=== PATIENT | male | born 1955 | race Caucasian/White ===

== ENCOUNTER 2019-03-06 10:57 | Emergency (ER) | payer MEDICAID, MEDICARE ==
[2019-03-06 11:07] VITALS: BP 132/77
--- NOTE | 2019-03-06 12:12 | ED Physician Documentation ---
History of Present Illness - Stated complaint Stated Complaint: FULL BODY RASH - Chief complaint Chief Complaint: General - History obtained from History obtained from: Patient - History of Present Illness Timing: Other (63-year-old gentleman with idiopathic neuropathy, not diabetic. Remote history of scabies presents with 4-week history of rash that spread basically from his ankles up to his crotch and then the trunk wall and forearms. It is very itchy. No right upper quadrant or abdominal pain. No weight loss. No history of liver problems.) Review of Systems Constitutional: denies: Fever, Chills, Myalgias, Fatigue Respiratory: denies: Dyspnea, Cough GI: denies: Abdominal Pain, Nausea, Vomiting, Diarrhea PD PAST MEDICAL HISTORY - Present Medications Home Medications: Ambulatory Orders Medication Instructions Recorded Confirmed Permethrin 5% Cream 1 applic TOP ONCE #2 tube 03/06/19 predniSONE [Deltasone] 20 mg PO [id number] #21 tab 03/06/19 - Allergies Allergies/Adverse Reactions: Allergies Allergy/AdvReac Type Severity Reaction Status Date / Time No Known Drug Allergies Allergy Verified 03/06/19 11:06 PD ED PE NORMAL - Vitals Vital signs reviewed: Yes - General General: Alert and oriented X 3, No acute distress - HEENT HEENT: PERRL (Anicteric) - Derm Derm: Other (He has basically kind of a diffuse erythroderma of the legs and arms with lots of excoriated gerber.) - Neuro Neuro: Alert and oriented X 3, Normal speech Results - Vitals Vitals: Vital Signs - 24 hr 03/06/19 11:04 Temperature 36.4 C L Heart Rate 78 Respiratory 20 Rate Blood Pressure 132/77 H O2 Saturation 98 Oxygen O2 Source Room air PD MEDICAL DECISION MAKING - ED course ED course: 63-year-old gentleman presents with a very itchy nonspecific rash. Scabies is less likely given the distribution but not impossible, there is no downside for treating for same. We will also trial some steroids pending dermatology follow- up which was strongly advised. Departure - Departure Disposition: 01 Home, Self Care Clinical Impression: Dermatitis Condition: Good Record reviewed to determine appropriate education?: Yes Instructions: ED Dermatitis Non Specific Rash Follow-Up: [facility] [Provider Group] Prescriptions: Permethrin 5% Cream 1 applic TOP ONCE #2 tube predniSONE [Deltasone] 20 mg PO [id number] #21 tab Comments: As discussed, the cause of your rash is not quite clear. It could be scabies so we will trial the Kwell cream, or could be some sort of allergic or autoimmune process so the steroids are reasonable to try as well. But I think following up with a map editor is very reasonable, call the number on this form today.
== END 2019-03-06 12:22 | disposition home or self-care (01) ==
LOC: ED 10:57
DX: L30.9 Dermatitis, unspecified (principal)
CPT/HCPCS: 99282; 99283

== ENCOUNTER 2019-04-28 11:14 | Emergency (ER) | payer MEDICARE ==
[2019-04-28 11:32] VITALS: BP 131/85
--- NOTE | 2019-04-28 12:49 | ED Physician Documentation ---
History of Present Illness - Stated complaint Stated Complaint: MALE - Chief complaint Chief Complaint: General - History obtained from History obtained from: Patient (For about a month he has had a mass posterior to the testicle. It does not really bother him unless it is touched. Been a little more pain for the last couple days. No fevers or chills.) Review of Systems Constitutional: denies: Fever, Chills GI: denies: Abdominal Pain, Nausea, Vomiting : denies: Dysuria, Frequency PD PAST MEDICAL HISTORY - Past Medical History Cardiovascular: Hypertension Musculoskeletal: Chronic back pain Other Past Medical History: neuropathy - Present Medications Home Medications: Ambulatory Orders Medication Instructions Recorded Confirmed Permethrin 5% Cream 1 applic TOP ONCE #2 tube 03/06/19 predniSONE [Deltasone] 20 mg PO [id number] #21 tab 03/06/19 Amox/Clav 875/125 [Augmentin] 1 each PO Q12H #20 tablet 04/28/19 - Allergies Allergies/Adverse Reactions: Allergies Allergy/AdvReac Type Severity Reaction Status Date / Time No Known Drug Allergies Allergy Verified 03/06/19 11:06 - Social History Does the pt smoke?: No Smoking Status: Never smoker Does the pt drink ETOH?: No Does the pt have substance abuse?: No - Immunizations Immunizations are current?: Yes PD ED PE NORMAL - Vitals Vital signs reviewed: Yes - General General: Alert and oriented X 3, No acute distress - Male Male : Other (There is a pointed slightly red sebaceous cyst anterior perineum About 2 cm around.) - Back Back: No CVA TTP, No spinal TTP Results - Vitals Vitals: Vital Signs - 24 hr 04/28/19 11:29 Temperature 36.7 C Heart Rate 87 Respiratory 18 Rate Blood Pressure 131/85 H O2 Saturation 96 Oxygen O2 Source Room air PD MEDICAL DECISION MAKING - ED course ED course: Recommended incision and drainage of his sebaceous cyst. He declined and would like to trial antibiotics. He understands he is welcome to return anytime. Departure - Departure Disposition: 01 Home, Self Care Clinical Impression: Sebaceous cyst Condition: Good Record reviewed to determine appropriate education?: Yes Instructions: ED Cyst Sebaceous Infec Abx Tx Prescriptions: Amox/Clav 875/125 [Augmentin] 1 each PO Q12H #20 tablet Comments: Your lesion is consistent with an infected sebaceous cyst. I recommended in cision and drainage, but you would like to try antibiotics at home. Return anytime if pain is significant or if you change your mind. Follow-up with your doctor next week for recheck regardless.
== END 2019-04-28 13:06 | disposition home or self-care (01) ==
LOC: ED 11:14
DX: L72.3 Sebaceous cyst (principal); I10 Essential (primary) hypertension
CPT/HCPCS: 99282; 99283

== ENCOUNTER 2019-12-03 11:17 | Outpatient (CLI) | payer MEDICARE, MEDICAID ==
--- NOTE | 2019-12-03 16:41 | Ultrasound Report ---
Reason: HERNIA OF ANTERIOR ABDOMEN WALL Procedure Date: 12/03/2019 Accession Number: [id number] / [id number] Procedure: US - Abdomen Limited CPT Code: Final Report FULL RESULT: EXAM: ABDOMEN ULTRASOUND LIMITED EXAM DATE: 12/03/2019 11:57 AM. CLINICAL HISTORY: Anterior abdominal wall hernia. COMPARISON: None. TECHNIQUE: Real-time scanning was performed with static images obtained. FINDINGS: Sonographic evaluation of the periumbilical region was performed and demonstrates a fat-containing hernia 3 cm superior to the umbilicus with neck measuring 2.2 x 1.6 cm in hernia sac measuring approximately 4.5 cm in diameter and 2.0 cm AP. IMPRESSION: Supraumbilical fat-containing midline hernia measuring up to 4.5 cm. MATILDEA
== END 2019-12-03 11:18 | disposition home or self-care (01) ==
LOC: DI 11:17
PROVIDERS: ATTEND Nurse Practitioner Family
DX: K43.9 Ventral hernia without obstruction or gangrene (principal)
CPT/HCPCS: 76705

== ENCOUNTER 2020-02-26 12:51 | Outpatient (CLI) | payer MEDICARE, MEDICAID | END 2020-02-26 12:52 | disposition home or self-care (01) | LOC: COV 12:51 | PROVIDERS: ATTEND Surgery | DX: Z01.818 Encounter for other preprocedural examination (principal); K63.9 Disease of intestine, unspecified; Z20.828 Contact with and (suspected) exposure to other viral communicable diseases ==

== ENCOUNTER 2020-11-21 11:22 | Outpatient (CLI) | payer MEDICARE, MEDICAID ==
--- NOTE | 2020-11-21 13:35 | XRAY Report ---
PROCEDURE: Knee 3 View LT INDICATIONS: PX IN LT KNEE TECHNIQUE: 3 views of the left knee(s) were acquired. COMPARISON: Knee x-ray 06/30/2014 FINDINGS: Bones: No fractures or dislocations. No suspicious bony lesions. There is mild to moderate tricomp artmental degenerative change demonstrating progressive compared to prior exam. No erosions. Small pa ratracheal or osteophytes are present. Soft tissues: Mild joint effusion. No suspicious soft tissue calcifications. IMPRESSION: Tricompartmental arthritic change, progressive compared to prior exam. Reviewed by: Yumi Segovia MD on 11/21/2020 1:33 PM PDT Approved by: Yumi Segovia MD on 11/21/2020 1:33 PM PDT Station ID: [id number]
== END 2020-11-21 11:23 | disposition home or self-care (01) ==
LOC: DI.S 11:22
PROVIDERS: ATTEND Family Medicine
DX: M17.12 Unilateral primary osteoarthritis, left knee (principal)

== ENCOUNTER 2021-04-10 11:09 | Emergency (ER) | payer MEDICARE, MEDICAID ==
[2021-04-10 11:26] VITALS: BP 129/79
== END 2021-04-10 11:59 | disposition left against medical advice (07) ==
LOC: ED 11:09
DX: Z53.21 Procedure and treatment not carried out due to patient leaving prior to being seen by health care provider (principal)

== ENCOUNTER 2021-05-31 10:17 | Outpatient (CLI) | payer MEDICARE, MEDICAID ==
--- NOTE | 2021-06-01 16:39 | XRAY Report ---
PROCEDURE: Foot 3 View RT INDICATIONS: RULE OUT OSTEOMYELITIS TECHNIQUE: 3 views of the foot were acquired. COMPARISON: None FINDINGS: Bones: No fractures or dislocations. No suspicious bony lesions. Scattered IP degenerative changes are present. There are no visualized erosions. Soft tissues: No tibiotalar joint effusion. Achilles tendon appears normal. Soft tissue lucency an d edema is noted surrounding the first and second digit. IMPRESSION: Soft tissue prominence suggestive of infection. No distinct osseous lesions to suggest osteomyelitis. However, if concern persists, MRI is recommended. Reviewed by: Yumi Segovia MD on 06/01/2021 4:37 PM PST Approved by: Yumi Segovia MD on 06/01/2021 4:37 PM PST Station ID: [id number]
== END 2021-05-31 10:18 | disposition home or self-care (01) ==
LOC: DI 10:17
PROVIDERS: ATTEND Nurse Practitioner
DX: E11.621 Type 2 diabetes mellitus with foot ulcer (principal); L03.90 Cellulitis, unspecified

== ENCOUNTER 2021-05-31 11:34 | Emergency (ER) | payer MEDICARE, MEDICAID ==
[2021-05-31 12:51] LABS: BASOPHILS # (AUTO) 0.1 10^3/uL (0.0-0.1); BASOPHILS % (AUTO) 0.8 %; EOSINOPHILS # (AUTO) 0.3 10^3/uL (0.0-0.7); HCT - HEMATOCRIT 37.7 % (42.0-52.0); HGB - HEMOGLOBIN 12.4 g/dL (14.0-18.0); LYMPHOCYTES # (AUTO) 1.3 10^3/uL (1.5-3.5); LYMPHOCYTES % (AUTO) 13.3 %; MEAN CORPUSCULAR HEMOGLOBIN 34.7 pg (27.0-31.0); MEAN CORPUSCULAR HGB CONC 32.9 g/dL (32.0-36.0); MEAN CORPUSCULAR VOLUME 105.6 fL (80.0-94.0); MEAN PLATELET VOLUME 8.7 fL (7.4-11.4); MONOCYTES # (AUTO) 0.9 10^3/uL (0.0-1.0); MONOCYTES % (AUTO) 8.6 %; NEUTROPHILS # (AUTO) 7.3 10^3/uL (1.5-6.6); NEUTROPHILS % (AUTO) 73.6 %; PLT - PLATELET COUNT 343 10^3/uL (130-450); RED BLOOD COUNT 3.57 10^6/uL (4.70-6.10); RED CELL DISTRIBUTION WIDTH 14.4 % (12.0-15.0); WHITE BLOOD COUNT 9.9 x10^3/uL (4.8-10.8)
[2021-05-31] MEDS ORDERED: CIPROFLOXACIN 400 MG/200 ML 400 MG/200 ML BAG IV STA (13:06)
[2021-05-31 13:08] LABS: ALBUMIN 3.7 g/dL (3.2-5.5); ALBUMIN/GLOBULIN RATIO 0.9 (1.0-2.2); BILIRUBIN,TOTAL 0.8 mg/dL (0.2-1.0); CALCIUM 9.7 mg/dL (8.5-10.3); CREATININE 0.9 mg/dL (0.6-1.2); CRP - C-REACTIVE PROTEIN 9.1 mg/dL (0-1.0); TOTAL PROTEIN 7.9 g/dL (6.7-8.2)
[2021-05-31 13:50] VITALS: BP 106/71
--- NOTE | 2021-05-31 14:20 | ED Physician Documentation ---
History of Present Illness - Stated complaint Stated Complaint: R FOOT WOUND - Chief complaint Chief Complaint: Ext Problem - History obtained from History obtained from: Patient - History of Present Illness Pain level max: 0 Pain level now: 0 - Additonal information Additional information: Patient is a 65-year-old male with neuropathy in his bilateral feet. He has been being treated for ulcers in the bilateral lower extremities. He is started to develop a plantar ulcer on the right foot about a week ago, over the past several days his toe has become swollen and draining. He was seen at wound care this morning and sent here for evaluation. Patient has not been febrile. Nothing makes it better or worse. Denies any history of diabetes. Patient does smoke. Review of Systems Constitutional: denies: Fever, Chills Ears: denies: Ear pain Nose: denies: Rhinorrhea / runny nose, Congestion Respiratory: denies: Cough GI: denies: Vomiting, Diarrhea Skin: denies: Rash Musculoskeletal: denies: Neck pain, Back pain Neurologic: denies: Headache PD PAST MEDICAL HISTORY - Past Medical History Past Medical History: Yes Cardiovascular: Hypertension Musculoskeletal: Chronic back pain - Present Medications Home Medications: Ambulatory Orders Medication Instructions Recorded Confirmed Albuterol Sulfate [Albuterol 8.5 gm IH BID 03/01/20 05/31/21 Sulfate Hfa] Beclomethasone 40 Mcg [Qvar 40] 1 puffs INH BID 03/01/20 05/31/21 Cyanocobalamin (Vitamin B-12) 500 mcg PO DAILY 03/01/20 05/31/21 [Vitamin B-12] Lisinopril [Zestril] 40 mg PO DAILY 03/01/20 05/31/21 hydroCHLOROthiazide 25 mg PO DAILY 03/01/20 05/31/21 [Hydrochlorothiazide] cephALEXin [Keflex] 500 mg PO BID #14 cap 05/25/21 05/31/21 Doxycycline Hyclate [Vibramycin] 100 mg PO BID 14 Days #28 cap 05/30/21 05/31/21 Ciprofloxacin HCl [Cipro] 500 mg PO BID #28 tablet 05/31/21 DULoxetine [Cymbalta] 60 mg PO DAILY 05/31/21 05/31/21 Meloxicam, Submicronized 10 mg PO DAILY 05/31/21 05/31/21 [Meloxicam] Methadone HCl 10 mg PO TID 05/31/21 05/31/21 - Allergies Allergies/Adverse Reactions: Allergies Allergy/AdvReac Type Severity Reaction Status Date / Time No Known Drug Allergies Allergy Verified 05/31/21 11:42 - Social History Does the pt smoke?: No Smoking Status: Current every day smoker Does the pt drink ETOH?: No Does the pt have substance abuse?: No - Immunizations Immunizations are current?: Yes - POLST Patient has POLST: No PD ED PE NORMAL - Vitals Vital signs reviewed: Yes - General General: Alert and oriented X 3, No acute distress - HEENT HEENT: Moist mucous membranes - Neck Neck: Supple, no meningeal sign - Cardiac Cardiac: RRR - Respiratory Respiratory: No respiratory distress, Clear bilaterally - Abdomen Abdomen: Soft, Non tender, Non distended - Derm Derm: Warm and dry - Extremities Extremities: Other (R foot - great toe has necrotic tissue about 50 % of the circumference of the toe. the wound communicates with a dime sized plantar wound. toe is erythematous and swollen. ) - Neuro Neuro: Alert and oriented X 3 - Psych Psych: Normal mood, Normal affect Results - Vitals Vitals: Vital Signs - 24 hr 05/31/21 05/31/21 05/31/21 11:37 13:49 15:25 Temperature 37 C Heart Rate 89 85 84 Respiratory 18 20 16 Rate Blood Pressure 119/62 106/71 O2 Saturation 98 94 94 Oxygen O2 Source Room air - Labs Labs: Laboratory Tests 05/31/21 05/31/21 05/31/21 12:44 12:44 12:44 WBC 9.9 RBC 3.57 L Hgb 12.4 L Hct 37.7 L MCV 105.6 H MCH 34.7 H MCHC 32.9 RDW 14.4 Plt Count 343 MPV 8.7 Neut # (Auto) 7.3 H Lymph # (Auto) 1.3 L Kimble # (Auto) 0.9 Eos # (Auto) 0.3 Baso # (Auto) 0.1 Absolute Nucleated RBC 0.00 Nucleated RBC % 0.0 ESR 67 H Sodium 136 Potassium 4.0 Chloride 92 L Carbon Dioxide 28 Anion Gap 16.0 H BUN 11 Creatinine 0.9 Estimated GFR (MDRD) 84 L Glucose 123 H Calcium 9.7 Total Bilirubin 0.8 AST 26 ALT 30 Alkaline Phosphatase 86 C-Reactive Protein 9.1 H Total Protein 7.9 Albumin 3.7 Globulin 4.2 Albumin/Globulin Ratio 0.9 L - Rads (name of study) CT angio leg Radiology: Final report received, EMP read contemporaneously, See rad report Procedures - General procedure General procedure: Right great toe debridement - Macerated tissue was sharply removed with a #11 scalpel. Necrotic tissue was also debrided. Quarter-inch plain packing was placed into the wound. Xeroform was wrapped around this. Kerlix was then used to bandage the entire area. Patient tolerated well. PD MEDICAL DECISION MAKING - ED course Complexity details: reviewed results, re-evaluated patient, considered differential, d/w patient ED course: Patient is a 65-year-old male with necrotic areas to the right great toe. These were debrided in the emergency department. Tolerated well. Packed with plain gauze and Xeroform was used to wrap the toe. Kerlix was then used to wrap the toe and foot. The patient was seen and evaluated by Dr. Villeda, orthopedics who recommends obtaining a CT angiogram of the lower extremity today and following up with wound care for a recheck on Saturday. We will place the patient on ciprofloxacin. Antibiotic is based on most recent cultures. Patient will follow up with wound care at 1030 on Saturday morning. Patient will return if he worsens. Patient was counseled that he may need toe amputation, ray amputation, or potential BKA. Patient counseled regarding signs and symptoms for which I believe and urgent re-evaluation would be necessary. Patient with good u nderstanding of and agreement to plan and is comfortable going home at this time This document was made in part using voice recognition software. While efforts are made to proofread this document, sound alike and grammatical errors may occur. Patient also states that he is going to quit smoking today. CT Angio leg: IMPRESSION: 1. CT aortography and bilateral lower extremity runoff arteriography does not demonstrate significant stenotic disease. There is only mild atherosclerotic narrowing. There is straight line flow to the ankles with three-vessel runoff bilaterally. 2. Diffuse hepatic steatosis. 3. Imaging was only obtained from the level of the renal arteries. A significant portion of the abdomen was not studied. Departure - Departure Disposition: 01 Home, Self Care Clinical Impression: Wound of foot Condition: Good Instructions: ED Wound Care Follow-Up: Rick Joseph MD [Primary Care Provider] - Within [address] Villeda MD [Provider Admit Priv/Credential] - Tanisha Morales ARNP [Provider Admit Priv/Credential] - Prescriptions: Ciprofloxacin HCl [Cipro] 500 mg PO BID #28 tablet Comments: We will start you on ciprofloxacin by mouth twice daily. You have an appointment with wound care at 1030 on Saturday for a wound check. You also need to follow-up with orthopedics for further care. Return sooner if you worsen including increasing redness, drainage, fevers or other worsening symptoms. Take all antibiotics until gone, even if you are feeling better [facility] Discharge Date/Time: 05/31/21 16:50
[2021-05-31] MEDS ORDERED: IOVERSOL 320 100 ML VIAL IVP ONE ×2 (14:24→18:26)
--- NOTE | 2021-05-31 16:19 | CT Report ---
PROCEDURE: ANGIO ABD RUNOFF W/WO - B/L INDICATIONS: RLE nonhealing wound CONTRAST: IV CONTRAST: Optiray 320 ml: 125 PO CONTRAST: *NO PO CONTRAST TECHNIQUE: After the administration of intravenous contrast, 2 and 5 mm sections acquired from T12 to the feet, with optional delayed image acquisition from the knees to the feet. 3-dimensional maximum intensity projection (MIP) coronal and sagittal reformats, and/or 3-dimensional volume rendering reformatting w as then performed. For radiation dose reduction, the following was used: automated exposure control , adjustment of mA and/or kV according to patient size. COMPARISON: None. FINDINGS: Image quality: Excellent. Extravascular tissues: Imaging occurred from the level of the renal arteries inferiorly. Much of the abdomen is not included on the images. Diffuse hepatic steatosis. Visualized portions of the liver d emonstrate no masses. Only the inferior aspect of the spleen is seen. The visualized portions of the pancreas are unremarkable. Visualized portions of the kidneys are unremarkable. Gallbladder is unrema rkable Biliary system is non dilated. Visualized portions of the adrenals are unremarkable. Non opac ified bowel loops demonstrate normal wall thickness and enhancement. No free fluid or air. No retro peritoneal or mesenteric adenopathy. No ventral hernias. Bladder wall thickness is normal. No ingu inal hernias or adenopathy. No suspicious bony lesions. No vertebral body compression fractures. Abdominal aorta: Aortic plaque is present. No stenosis or aneurysm or dissection. Right lower extremity: Mild common iliac and external iliac artery plaque. Mild common femoral disea se. Mild diffuse SFA disease, with straight line flow. Mild popliteal disease. Three continuous runo ff vessels. Left lower extremity: Mild common iliac and external iliac artery plaque. Mild common femoral diseas e. Mild diffuse SFA disease, with straight line flow. Mild popliteal disease. Three continuous runof f vessels. IMPRESSION: 1. CT aortography and bilateral lower extremity runoff arteriography does not demonstrate significant stenotic disease. There is only mild atherosclerotic narrowing. There is straight line flow to the a nkles with three-vessel runoff bilaterally. 2. Diffuse hepatic steatosis. 3. Imaging was only obtained from the level of the renal arteries. A significant portion of the abdom en was not studied. Reviewed by: Edwin Mills MD on 05/31/2021 4:18 PM PST Approved by: Edwin Mills MD on 05/31/2021 4:18 PM [facility] Station ID: [id number]
== END 2021-05-31 16:50 | disposition home or self-care (01) ==
LOC: ED 11:34
DX: I96 Gangrene, not elsewhere classified (principal); E11.52 Type 2 diabetes mellitus with diabetic peripheral angiopathy with gangrene; E11.621 Type 2 diabetes mellitus with foot ulcer; L03.90 Cellulitis, unspecified; F17.200 Nicotine dependence, unspecified, uncomplicated
CPT/HCPCS: 36415; 73630; 75635; 80053; 85025; 85651; 86140; 87040; 96365; 97597; 99284; Q9967

== ENCOUNTER 2021-06-27 11:41 | Outpatient (CLI) | payer MEDICARE, MEDICAID ==
--- NOTE | 2021-06-27 17:28 | XRAY Report ---
PROCEDURE: Foot 3 View RT INDICATIONS: R FOOT ULCER TECHNIQUE: 3 views of the foot were acquired. COMPARISON: 05/31/2021 FINDINGS: Bones: No fractures or dislocations. No suspicious bony lesions. There are degenerative changes of the interphalangeal joints. Soft tissues: No tibiotalar joint effusion. Achilles tendon appears normal. IMPRESSION: 1. Degenerative changes of the interphalangeal joints. 2. No evidence of osteomyelitis. Reviewed by: Silvio Bhakta on 06/27/2021 5:27 PM [facility] Approved by: Silvio Bhakta on 06/27/2021 5:27 PM [facility] Station ID: [id number]
== END 2021-06-27 23:59 | disposition home or self-care (01) ==
LOC: DI.N 11:41
PROVIDERS: ATTEND Orthopaedic Surgery
DX: L97.529 Non-pressure chronic ulcer of other part of left foot with unspecified severity (principal); M19.071 Primary osteoarthritis, right ankle and foot

== ENCOUNTER 2022-04-06 08:29 | Outpatient (CLI) | payer MEDICARE, MEDICAID ==
--- NOTE | 2022-04-06 14:43 | XRAY Report ---
PROCEDURE: Foot 3 View RT INDICATIONS: OSTEOMYELITIS TECHNIQUE: 3 views of the foot were acquired. COMPARISON: None FINDINGS: Bones: No fractures or dislocations. There is significant thickening with possible disruption of the cortex of the tuft of the distal first phalanx. Soft tissues: No tibiotalar joint effusion. Achill es tendon appears normal. IMPRESSION: Possible erosion versus diffuse osteopenia at the first distal phalanx. If concern for osteomyelitis persists, MRI is recommended. Reviewed by: Yumi Segovia MD on 04/06/2022 2:41 PM PDT Approved by: Yumi Segovia MD on 04/06/2022 2:41 PM PDT Station ID: [id number]
== END 2022-04-06 08:30 | disposition home or self-care (01) ==
LOC: DI 08:29
PROVIDERS: ATTEND Nurse Practitioner
DX: L97.519 Non-pressure chronic ulcer of other part of right foot with unspecified severity (principal); F17.210 Nicotine dependence, cigarettes, uncomplicated; G62.9 Polyneuropathy, unspecified; I87.2 Venous insufficiency (chronic) (peripheral)

== ENCOUNTER 2022-06-28 13:45 | Outpatient (CLI) | payer MEDICARE, MEDICAID ==
[~2022-06-28 13:45] MED LIST: GADOBUTROL 10 MMOL/10 ML VIAL ONE
[2022-06-28] MEDS: GADOBUTROL 10 MMOL/10 ML VIAL IVP ONE (15:24)
--- NOTE | 2022-06-29 10:57 | MRI Report ---
PROCEDURE: FOOT W/WO - RT INDICATIONS: CHRONIC ULCER R FOOT CONTRAST: 10.0 TECHNIQUE: Noncontrast sagittal T1 spin echo and T2 fast spin echo with fat saturation, long-axis T1 spin echo a nd T2 fast spin echo with fat saturation; short-axis T1 spin echo, proton density fast spin echo, and T2 fast spin echo with fat saturation through the forefoot. Post-contrast short axis, long axis, an d sagittal T1 spin echo with fat saturation through the forefoot. COMPARISON: Right foot radiograph dated 04/06/2022, 06/27/2021, 05/31/2021 FINDINGS: Image quality: Diagnostic. Patient motion is noted.. Bones and joints: There is marrow edema involving first proximal phalangeal head and show contrast en hancement in this area. No definite bony erosion is seen. No other area of abnormal marrow signal. Os teoarthritic changes are noted throughout midfoot and forefoot joints. Bipartite medial sesamoid of f irst metatarsal head is seen. No acute fracture or dislocation. No evidence of metatarsal stress frac tures. Soft tissues: Ulceration involving plantar aspect of great toe is noted at the level of first proxima l phalangeal shaft and first metatarsal head. Adjacent soft tissue swelling and edema is seen and marty w heterogeneous contrast enhancement. No discrete drainable peripherally enhancing fluid collection i s noted. The visualized plantar foot muscles demonstrate mild edema suggestive of myositis. Visualiz ed flexor and extensor tendons appear intact, without tenosynovitis. The distal insertions of the pe roneus brevis and longus tendons appear intact. The principal Lisfranc ligament appears intact. No soft tissue ganglion cysts or bursal fluid collections. IMPRESSION: 1. Ulceration involving soft tissue over plantar aspect of right toe at the level of first MTP joint and first proximal phalangeal shaft. Significant cellulitis in adjacent soft tissue is seen. No discr ete drainable abscess collection. 2. Suggestion of osteomyelitis involving lateral aspect of first proximal phalangeal head with marrow edema. No definite bony erosion. Evaluation is slightly limited due to patient motion. No other area of marrow signal abnormality is seen. 3. Osteoarthritic changes throughout midfoot and forefoot joints. No fracture or dislocation. 4. Mild myositis involving medial plantar foot muscles. No discrete drainable intramuscular abscess c ollection. No gross flexor and extensor tendon pathology. Reviewed by: Grant Romo MD on 06/29/2022 10:56 AM PST Approved by: Grant Romo MD on 06/29/2022 10:56 AM PST Station ID: [id number]
== END 2022-06-28 13:46 | disposition home or self-care (01) ==
LOC: MAC.INF 13:45
PROVIDERS: ATTEND Nurse Practitioner
DX: L97.512 Non-pressure chronic ulcer of other part of right foot with fat layer exposed (principal); I87.2 Venous insufficiency (chronic) (peripheral); G62.9 Polyneuropathy, unspecified; L03.031 Cellulitis of right toe; M19.071 Primary osteoarthritis, right ankle and foot; M60.9 Myositis, unspecified; R93.6 Abnormal findings on diagnostic imaging of limbs
CPT/HCPCS: 73720; A9585

== ENCOUNTER 2022-07-22 15:20 | Outpatient (CLI) | payer MEDICARE, MEDICAID | END 2022-07-22 15:21 | disposition EMS.NT | LOC: EMS 15:20 | DX: R60.0 Localized edema (principal); R42 Dizziness and giddiness; R61 Generalized hyperhidrosis ==

== ENCOUNTER 2022-11-16 09:57 | Outpatient (CLI) | payer MEDICARE, MEDICAID ==
--- NOTE | 2022-11-16 14:51 | XRAY Report ---
PROCEDURE: Foot 3 View RT INDICATIONS: VENOUS INSUFFICIENCY,POLYNEUROPATHY TECHNIQUE: 3 views of the foot were acquired. COMPARISON: MR foot 06/28/2022, x-ray foot 04/06/2022 FINDINGS: Bones: No fractures or dislocations. No suspicious bony lesions. Moderate diffuse IP degenerative narrowing, most severe distally, as well as the first MTP joint. Periarticular osteophytes are prese nt.. Osteopenia is present. Soft tissues: No suspicious soft tissue calcifications or masses. IMPRESSION: IP arthritic change. Reviewed by: Yumi Segovia MD on 11/16/2022 2:50 PM PDT Approved by: Yumi Segovia MD on 11/16/2022 2:50 PM PDT Station ID: [id number]
== END 2022-11-16 09:58 | disposition home or self-care (01) ==
LOC: DI 09:57
PROVIDERS: ATTEND Nurse Practitioner
DX: I87.2 Venous insufficiency (chronic) (peripheral) (principal); G62.9 Polyneuropathy, unspecified; M19.071 Primary osteoarthritis, right ankle and foot

== ENCOUNTER 2022-12-24 08:00 | Outpatient (CLI) | payer MEDICARE, MEDICAID ==
--- NOTE | 2022-12-24 16:49 | XRAY Report ---
PROCEDURE: Chest 2 View X-Ray INDICATIONS: SHORTNESS OF BREATH TECHNIQUE: 2 views of the chest were acquired. COMPARISON: Chest x-ray, 10/21/2015. FINDINGS: Surgical changes and devices: None. Lungs and pleura: Mild interstitial prominence. No focal consolidation. No pleural effusions or pneu mothorax. Mediastinum: Mediastinal contours appear normal. Heart size is normal. Bones and chest wall: No suspicious bony lesions. Overlying soft tissues appear unremarkable. IMPRESSION: No acute cardiopulmonary process. Reviewed by: Dada Silva MD on 12/24/2022 4:47 PM PDT Approved by: Dada Silva MD on 12/24/2022 4:47 PM PDT Station ID: [id number]
== END 2022-12-24 23:59 | disposition home or self-care (01) ==
LOC: DI.S 08:00
PROVIDERS: ATTEND Registered Nurse
DX: R06.02 Shortness of breath (principal)

== ENCOUNTER 2023-03-15 06:12 | Outpatient (CLI) | payer MEDICARE, MEDICAID | END 2023-03-15 06:13 | disposition critical access hospital (66) | LOC: EMS 06:12 | DX: R06.02 Shortness of breath (principal); J44.9 Chronic obstructive pulmonary disease, unspecified | CPT/HCPCS: A0425; A0427 ==

== ENCOUNTER 2023-03-15 06:47 | Inpatient (IN) | payer MEDICARE, MEDICAID ==
[2023-03-15] MEDS ORDERED: IPRATROPIUM/ALBUTEROL 3 ML NEB INH STA (06:51)
--- NOTE | 2023-03-15 07:03 | ED Physician Documentation ---
PD HPI DYSPNEA - Stated complaint Stated Complaint: DIFF BREATHING - History obtained from History obtained from: Patient, EMS - History of Present Illness Timing - onset: How many weeks ago (1-2 gradually with marked worse 1-2 days.) Timing - onset during: Light activity Timing - duration: Days, Weeks Timing - details: Gradual onset, Still present Inciting event(s): No: Out of meds, URI Improved by: Inhaler/neb, Other (He does have history of COPD but has albuterol inhaler as needed only. No other medicines. No home oxygen. Mild baseline wheeze. He still smokes.) Review of Systems Constitutional: reports: Myalgias. denies: Fever, Chills Nose: reports: Congestion. denies: Rhinorrhea / runny nose Throat: reports: Sore throat Cardiac: reports: Palpitations. denies: Chest pain / pressure, Pedal edema Respiratory: reports: Dyspnea, Cough, Wheezing : denies: Dysuria, Frequency Skin: denies: Rash, Lesions Musculoskeletal: denies: Neck pain, Back pain PD PAST MEDICAL HISTORY - Past Medical History Cardiovascular: Hypertension Respiratory: COPD Neuro: None Endocrine/Autoimmune: None Musculoskeletal: Chronic back pain - Present Medications Home Medications: Ambulatory Orders Medication Instructions Recorded Confirmed Albuterol Sulfate [Albuterol 2 - 4 puffs IH RTQ4H PRN 03/01/20 03/15/23 Sulfate Hfa] hydroCHLOROthiazide 25 mg PO DAILY 03/01/20 03/15/23 [Hydrochlorothiazide] Methadone HCl 10 mg PO TID 05/31/21 03/15/23 Furosemide [Lasix] 20 mg PO DAILY 03/15/23 03/15/23 lisinopriL [Lisinopril] 40 mg PO DAILY 03/15/23 03/15/23 - Allergies Allergies/Adverse Reactions: Allergies Allergy/AdvReac Type Severity Reaction Status Date / Time No Known Drug Allergies Allergy Verified 03/15/23 07:04 - Social History Does the pt smoke?: No Smoking Status: Current every day smoker Does the pt drink ETOH?: No Does the pt have substance abuse?: No - Immunizations Immunizations are current?: Yes - POLST Patient has POLST: No PD ED PE NORMAL - Vitals Vital signs reviewed: Yes - General General: Alert and oriented X 3, Well developed/nourished, Other (initial appearance of tachycpnea, work of breathing, and partials entence dyspnea. This improved with nebulizers x 3 and BiPAP. ) - HEENT HEENT: Pharynx benign - Neck Neck: Supple, no meningeal sign, No adenopathy - Cardiac Cardiac: RRR, No murmur - Respiratory Respiratory: Other (able to talk partial sentences. ). No: Clear bilaterally (exp wheezing noted diffusely with prolonged expiratory phase. ) - Abdomen Abdomen: Soft, Non tender - Back Back: No CVA TTP - Derm Derm: Normal color, Warm and dry - Extremities Extremities: Normal ROM s pain, No edema, No calf tenderness / cord - Neuro Neuro: Alert and oriented X 3, No motor deficit, Normal speech Results - Vitals Vitals: Vital Signs - 24 hr 03/15/23 03/15/23 03/15/23 06:56 07:00 07:05 Temperature 36.5 C Heart Rate 22 L 109 H 108 H Respiratory 26 H 22 Rate Blood Pressure 145/95 H 162/84 H O2 Saturation 100 95 03/15/23 03/15/23 03/15/23 07:22 07:54 08:08 Temperature Heart Rate 102 H 96 102 H Respiratory 17 17 20 Rate Blood Pressure 162/84 H O2 Saturation 100 03/15/23 03/15/23 03/15/23 09:04 09:21 09:31 Temperature Heart Rate 87 95 105 H Respiratory 13 16 Rate Blood Pressure 109/70 O2 Saturation 98 03/15/23 10:18 Temperature Heart Rate 92 Respiratory 14 Rate Blood Pressure 109/70 O2 Saturation 98 Oxygen O2 Source BIPAP - Labs Labs: Laboratory Tests 03/15/23 03/15/23 03/15/23 07:00 07:00 07:00 WBC 12.9 H RBC 3.71 L Hgb 12.4 L Hct 39.0 L MCV 105.1 H MCH 33.4 H MCHC 31.8 L RDW 13.5 Plt Count 224 MPV 9.6 Neut # (Auto) 8.9 H Lymph # (Auto) 1.4 L [place] # (Auto) 1.1 H Eos # (Auto) 1.4 H Baso # (Auto) 0.1 Absolute Nucleated RBC 0.00 Nucleated RBC % 0.0 Manual Slide Review Indicated RBC Morph Micro Appear 1+ ANISOCYTOSIS D-Dimer Bld Gas Analysis Time Sample Site ABG pH ABG pCO2 ABG pO2 ABG HCO3 ABG Total CO2 ABG O2 Saturation ABG Base Excess Simba Test VBG pH 7.283 L VBG pCO2 56.9 H VBG pO2 122.0 H VBG HCO3 26.3 VBG Total CO2 28.1 VBG O2 Saturation 98.1 H VBG Base Excess -1.4 Respiration Rate O2 Delivery Device FiO2 EPAP IPAP Sodium 133 L Potassium 4.6 H Chloride 98 L Carbon Dioxide 31 Anion Gap 4.0 L BUN 19 Creatinine 1.1 Estimated GFR (MDRD) 66 L Glucose 157 H Calcium 9.2 Magnesium Total Bilirubin 0.4 AST 17 ALT 16 Alkaline Phosphatase 79 B-Natriuretic Peptide 33 Total Protein 7.5 Albumin 4.4 Globulin 3.1 Albumin/Globulin Ratio 1.4 Lipase < 10 L Nasal Adenovirus (PCR) Nasal B. parapertussis DNA (PCR) Nasal Coronavir 229E PCR Nasal Coronavir HKU1 PCR Nasal Coronavir NL63 PCR Nasal Coronavir OC43 PCR Nasal Enterovir/Rhinovir PCR Nasal Influenza B PCR Nasal Influenza A PCR Nasal Parainfluen 1 PCR Nasal Parainfluen 2 PCR Nasal Parainfluen 3 PCR Nasal Parainfluen 4 PCR Nasal RSV (PCR) Nasal B.pertussis DNA PCR Nasal C.pneumoniae (PCR) Jacek Human Metapneumo PCR Nasal M.pneumoniae (PCR) Nasal SARS-CoV-2 (PCR) 03/15/23 03/15/23 03/15/23 07:00 07:10 07:48 WBC RBC Hgb Hct MCV MCH MCHC RDW Plt Count MPV Neut # (Auto) Lymph # (Auto) [place] # (Auto) Eos # (Auto) Baso # (Auto) Absolute Nucleated RBC Nucleated RBC % Manual Slide Review RBC Morph Micro Appear D-Dimer Bld Gas Analysis Time 0744 Sample Site RIGHT RADIAL ABG pH 7.21 L ABG pCO2 73 H* ABG pO2 112 H ABG HCO3 28.5 H ABG Total CO2 30.7 H ABG O2 Saturation 97 ABG Base Excess -1.1 Simab Test POSITIVE VBG pH VBG pCO2 VBG pO2 VBG HCO3 VBG Total CO2 VBG O2 Saturation VBG Base Excess Respiration Rate 16 O2 Delivery Device BiPAP FiO2 40.00 EPAP 5 IPAP 10 Sodium Potassium Chloride Carbon Dioxide Anion Gap BUN Creatinine Estimated GFR (MDRD) Glucose Calcium Magnesium 2.0 Total Bilirubin AST ALT Alkaline Phosphatase B-Natriuretic Peptide Total Protein Albumin Globulin Albumin/Globulin Ratio Lipase Nasal Adenovirus (PCR) NOT DETECTED Nasal B. parapertussis DNA (PCR) NOT DETECTED Nasal Coronavir 229E PCR NOT DETECTED Nasal Coronavir HKU1 PCR NOT DETECTED Nasal Coronavir NL63 PCR NOT DETECTED Nasal Coronavir OC43 PCR NOT DETECTED Nasal Enterovir/Rhinovir PCR NOT DETECTED Nasal Influenza B PCR NOT DETECTED Nasal Influenza A PCR NOT DETECTED Nasal Parainfluen 1 PCR NOT DETECTED Nasal Parainfluen 2 PCR NOT DETECTED Nasal Parainfluen 3 PCR NOT DETECTED Nasal Parainfluen 4 PCR NOT DETECTED Nasal RSV (PCR) NOT DETECTED Nasal B.pertussis DNA PCR NOT DETECTED Nasal C.pneumoniae (PCR) NOT DETECTED Jacek Human Metapneumo PCR NOT DETECTED Nasal M.pneumoniae (PCR) NOT DETECTED Nasal SARS-CoV-2 (PCR) NOT DETECTED 03/15/23 03/15/23 09:10 09:42 WBC RBC Hgb Hct MCV MCH MCHC RDW Plt Count MPV Neut # (Auto) Lymph # (Auto) [place] # (Auto) Eos # (Auto) Baso # (Auto) Absolute Nucleated RBC Nucleated RBC % Manual Slide Review RBC Morph Micro Appear D-Dimer 257.8 H Bld Gas Analysis Time 0917 Sample Site RIGHT RADIAL ABG pH 7.22 L ABG pCO2 73 H* ABG pO2 87 ABG HCO3 29.1 H ABG Total CO2 31.4 H ABG O2 Saturation 95 ABG Base Excess -0.4 Simba Test POSITIVE VBG pH VBG pCO2 VBG pO2 VBG HCO3 VBG Total CO2 VBG O2 Saturation VBG Base Excess Respiration Rate 16 O2 Delivery Device BiPAP FiO2 35.00 EPAP 5 IPAP 15 Sodium Potassium Chloride Carbon Dioxide Anion Gap BUN Creatinine Estimated GFR (MDRD) Glucose Calcium Magnesium Total Bilirubin AST ALT Alkaline Phosphatase B-Natriuretic Peptide Total Protein Albumin Globulin Albumin/Globulin Ratio Lipase Nasal Adenovirus (PCR) Nasal B. parapertussis DNA (PCR) Nasal Coronavir 229E PCR Nasal Coronavir HKU1 PCR Nasal Coronavir NL63 PCR Nasal Coronavir OC43 PCR Nasal Enterovir/Rhinovir PCR Nasal Influenza B PCR Nasal Influenza A PCR Nasal Parainfluen 1 PCR Nasal Parainfluen 2 PCR Nasal Parainfluen 3 PCR Nasal Parainfluen 4 PCR Nasal RSV (PCR) Nasal B.pertussis DNA PCR Nasal C.pneumoniae (PCR) Jacek Human Metapneumo PCR Nasal M.pneumoniae (PCR) Nasal SARS-CoV-2 (PCR) - Rads (name of study) chest xray Relevant Findings:: Prelim report reviewed, EMP independent interpretation of test (diffuse mild general instertitial changes c/w edema vs. viral pneumonitis appearance. ) PD Medical Decision Making - ED course Complexity details: reviewed results (normal BNP so less likely CHF. Presume viral pneumonia difuse pattern. D-dimer negative (increase 2 points over normal lab, but negative by age adjusted). ), re-evaluated patient, considered differential, d/w patient ED course: The patient arrived via EMS having had nebulizer and Solu-Medrol on route. His breathing was still labored and had diffuse wheezing so was placed on BiPAP on arrival here in the ER. This helped quite a bit over the next 15 or 20 minutes and he was maintained on it. He was given repeat nebulizer treatments in line. Chest x-ray showed some diffuse interstitial changes consistent with possible edema versus viral pattern. No focal infiltrates. Clinically he was looking much more comfortable with decreased work of breathing and work using his iPhone and speaking in complete sentences. He rested briefly and seemed to be almost sleeping but roused promptly. He said he was tired. His initial blood gas showed a PCO2 of 53 with adequate oxygenation. Clinically he was doing much better but a repeat ABG now showed PCO2 is in the 70s. Interesting that this was not how it appeared clinically for him. We maintain him on BiPAP and increased his top pressure. His oxygen intake was kept the same as this is adequate. We could even decrease his oxygen level a bit in case he has a retainer. At this point he does not look to be going into respiratory failure. He is breathing much easier and awake and alert. However he still has acidosis with hypercarbia and a COPD exacerbation. I talked with the hospitalist who agreed to place the patient in the ICU for further treatment. Other consideration he does have a chronic leg wound on the right foot. No calf tenderness nor edema. His D-dimer is essentially normal at 257 with normal up to 255. He does not have any infiltrates or pneumothorax on chest x-ray. He is on the BiPAP at this point so CT would be difficult and I do not see an urgent indication for CT scan. - Critical Care Time(min): 50 Time Includes: Direct patient care, Reassess patient, Document care Data interpretation: Labs, ABG, CXR Departure - Departure Disposition: 66 [facility] DC/Xfer Clinical Impression: Dyspnea, Hypercarbia, Acute exacerbation of COPD with asthma Condition: Stable Discharge Date/Time: 03/15/23 12:09
[2023-03-15 07:10] LABS: BASOPHILS # (AUTO) 0.1 10^3/uL (0.0-0.1); BASOPHILS % (AUTO) 0.5 %; EOSINOPHILS # (AUTO) 1.4 10^3/uL (0.0-0.7); EOSINOPHILS % (AUTO) 10.6 %; HGB - HEMOGLOBIN 12.4 g/dL (14.0-18.0); LYMPHOCYTES # (AUTO) 1.4 10^3/uL (1.5-3.5); LYMPHOCYTES % (AUTO) 10.9 %; MEAN CORPUSCULAR HEMOGLOBIN 33.4 pg (27.0-31.0); MEAN CORPUSCULAR HGB CONC 31.8 g/dL (32.0-36.0); MEAN CORPUSCULAR VOLUME 105.1 fL (80.0-94.0); MEAN PLATELET VOLUME 9.6 fL (7.4-11.4); MONOCYTES # (AUTO) 1.1 10^3/uL (0.0-1.0); MONOCYTES % (AUTO) 8.2 %; NEUTROPHILS # (AUTO) 8.9 10^3/uL (1.5-6.6); NEUTROPHILS % (AUTO) 69.4 %; PLT - PLATELET COUNT 224 10^3/uL (130-450); RED BLOOD COUNT 3.71 10^6/uL (4.70-6.10); RED CELL DISTRIBUTION WIDTH 13.5 % (12.0-15.0); WHITE BLOOD COUNT 12.9 x10^3/uL (4.8-10.8)
[2023-03-15 07:12] LABS: VBG BASE EXCESS -1.4 mmol/L (-2 - +2); VBG HCO3 26.3 mmol/L (23-28); VBG OXYGEN SATURATION 98.1 % (60-80); VBG PCO2 56.9 mmHg (41-51); VBG PH 7.283 (7.31-7.41); VBG TOTAL CO2 28.1 mmol/L (24-29)
[2023-03-15 07:16] LABS: RBC MORPHOLOGY (MULTIPLE) 1+ ANISOCYTOSIS (NORMAL); SLIDE REVIEW? Indicated
[2023-03-15] MEDS ORDERED: ALBUTEROL NEB 2.5 MG/3 ML INH STA ×2 (07:21→09:17)
[2023-03-15 07:26] LABS: ALBUMIN 4.4 g/dL (3.2-5.5); ALBUMIN/GLOBULIN RATIO 1.4 (1.0-2.2); ALKALINE PHOSPHATASE 79 IU/L (42-121); ALT ALANINE AMINOTRANSFERASE 16 IU/L (10-60); AST ASPARTATE AMINOTRANSFERASE 17 IU/L (10-42); BILIRUBIN,TOTAL 0.4 mg/dL (0.2-1.0); BUN - BLOOD UREA NITROGEN 19 mg/dL (6-20); CALCIUM 9.2 mg/dL (8.5-10.3); CARBON DIOXIDE - CO2 31 mmol/L (21-32); CHLORIDE 98 mmol/L (101-111); CREATININE 1.1 mg/dL (0.6-1.3); GFR - MDRD 66 (>89); GLUCOSE 157 mg/dL (74-104); POTASSIUM 4.6 mmol/L (3.5-4.5); SODIUM 133 mmol/L (135-145); TOTAL PROTEIN 7.5 g/dL (6.4-8.9)
[2023-03-15 07:33] LABS: LIPASE < 10 U/L (11-82)
--- OUTSIDE RECORDS SUMMARY | 2023-03-15 07:55 | EXTERNAL MEDICAL SUMMARY RPT | Continuity of Care Document ---
Author Name Unknown Address [address] [place] [address] Phone Organization [facility] Address [address] [place] [address] Phone Care Team Providers Care Manager Financial Systems Name Role Phone Unavailable Unavailable Unavailable Kobe Jangp, Rafiq Unavailable Unavailabl e Bartolo Cabrera, Waleska Lopez Unavailable Unavailabl e Medications date description facility 2022-12-24 00:00 [facility]isolone [facility] 2022-12-24 00:00 methylprednisolone [facility] 2022-12-25 00[facility]00 furosemide [facility] 2022-12-26 00:00 furosemide [facility] 2022-12-28 00:00 furosemide [facility] 2022-12-24 00:00 methylprednisolone [facility] 2022-12-24 00:00 methylprednisolone [facility] 2022-12-24 00:00 methylprednisolone [facility] 2022-12-24 00:00 methylprednisolone [facility] 2022-12-24 00:00 DEXAMETHASONE SODIUM PHOSPHATE [facility] 2022-12-24 00:00 DEXAMETHASONE SODIUM PHOSPHATE [facility] 2022-12-25 00:00 furosemide [facility] 2022-12-26 00:00 furosemide [facility] 2022-12-28 00:00 furosemide [facility] 2022-12-25 00:00 furosemide [facility] 2022-12-26 00:00 furosemide [facility] 2022-12-28 00:00 furosemide [facility] 2022-12-24 00:00 albuterol sulfate [facility] 2022-12-24 00:00 albuterol sulfate [facility] 2022-12-24 00:00 albuterol sulfate [facility] 2022-12-24 00:00 albuterol sulfate [facility] 2022-12-24 00:00 albuterol sulfate [facility] 2022-12-24 00:00 albuterol sulfate [facility] 2022-12-24 00:00 albuterol sulfate [facility] 2022-12-24 00:00 albuterol sulfate [facility] 2022-12-24 00:00 methylprednisolone [facility] 2022-12-24 00:00 methylprednisolone [facility] 2022-12-25 00:00 furosemide [facility] 2022-12-26 00:00 furosemide [facility] 2022-12-28 00:00 furosemide [facility] Problems date description facility 2022-12-24 00:00 Dyspnea [facility] 2022-12-24 00:00 Dyspnea [facility] 2022-12-24 00:00 Shortness of breath [facility] 2022-12-24 00:00 Shortness of breath [facility] 2022-12-25 00:00 Other emphysema [facility] 2022-12-25 00:00 Pulmonary emphysema [facility] 2022-12-25 00:00 Emphysema, unspecified [facility] 2022-12-26 00:00 Other emphysema [facility] 2022-12-26 00:00 Pulmonary emphysema [facility] 2022-12-26 00:00 Emphysema, unspecified [facility] 2022-12-28 00:00 Other emphysema [facility] 2022-12-28 00:00 Pulmonary emphysema [facility] 2022-12-28 00:00 Emphysema, unspecified [facility] Procedures date description facility 2022-12-24 00:00 Visit Code Hold [facility] 2022-12-24 00:00 Visit Code Hold [facility] 2022-12-24 00:00 Dexamethasone Sodium Phosphate Inj 10mg/1mL [facility] 2022-12-24 00:00 Dexamethasone Sodium Phosphate Inj 10mg/1mL [facility] Results/Labs test date facility value unit notes Social History date description facility 2022-12-24 00:00 Current every day smoker [facility] 2022-12-24 00:00 Current every day smoker [facility] Vital Signs date measurement value units 2022-12-24 00:00 BMI 40.08 kg/m2 2022-12-24 00:00 BP_diastolic 71 mmHg 2022-12-24 00:00 BP_systolic 129 mmHg 2022-12-24 00:00 heart_rate 87 /min 2022-12-24 00:00 height_metric 175.26 cm 2022-12-24 00:00 height_standard 69 in 2022-12-24 00:00 respiration_rate 22 /min 2022-12-24 00:00 temperature_metric 37.17 C 2022-12-24 00:00 temperature_standard 98.9 F 2022-12-24 00:00 weight_metric 122.65 kg 2022-12-24 00:00 weight_standard 270.4 lb
[2023-03-15 07:56] LABS: ABG BASE EXCESS -1.1 mmol/L (-2.0-3.0); ABG HCO3 28.5 mmol/L (22.0-26.0); ABG OXYGEN SATURATION 97 % (94-98); ABG PH 7.21 (7.35-7.45); ABG PO2 112 mmHg (80-100); ABG TCO2 30.7 MMOL/L (21.0-29.0); ALLEN TEST POSITIVE
[2023-03-15 07:57] LABS: ABG RESPIRATORY RATE 16 b/min
[2023-03-15 07:59] LABS: ABG PCO2 73 mmHg (34-45)
[2023-03-15 08:10] LABS: B. PARAPERTUSSIS- RESP PCR PAN NOT DETECTED; B. PERTUSSIS- RESP PCR PANEL NOT DETECTED; C. PNEUMONIAE- RESP PCR PANEL NOT DETECTED; CORONAVIRUS 229E-RESP PCR NOT DETECTED; CORONAVIRUS HKU1-RESP PCR NOT DETECTED; CORONAVIRUS NL63-RESP PCR NOT DETECTED; CORONAVIRUS OC43-RESP PCR NOT DETECTED; HUMAN METAPNEUMOVIRUS NOT DETECTED; INFLUENZA A- RESP PCR PANEL NOT DETECTED; INFLUENZA B - RESP PCR PANEL NOT DETECTED; M. PNEUMONIAE- RESP PCR PANEL NOT DETECTED; PARAINFLUENZA VIRUS 1 NOT DETECTED; PARAINFLUENZA VIRUS 2 NOT DETECTED; PARAINFLUENZA VIRUS 3 NOT DETECTED; PARAINFLUENZA VIRUS 4 NOT DETECTED; RHINOVIRUS/ENTEROVIRUS NOT DETECTED; RSV- RESP PCR PANEL NOT DETECTED; SARS-CoV-2 -RESP PCR PANEL NOT DETECTED
--- NOTE | 2023-03-15 08:48 | XRAY Report ---
PROCEDURE: Chest 1 View X-Ray INDICATIONS: Chest Pain TECHNIQUE: One view of the chest was acquired. COMPARISON: Chest radiograph 12/24/2022. FINDINGS: Surgical changes and devices: None. Lungs and pleura: Mild bilateral central vascular prominence and increased interstitial markings. Mediastinum: Cardiac silhouette is mildly enlarged. Bones and chest wall: No suspicious bony lesions. Overlying soft tissues appear unremarkable. IMPRESSION: Mild cardiomegaly and bilateral interstitial prominence is suspicious for mild pulmonary edema/conges tive heart failure. There is no significant discrepancy when compared with the preliminary overnight report. Reviewed by: David Quiroz MD on 03/15/2023 8:47 AM PDT Approved by: David Quiroz MD on 03/15/2023 8:47 AM PDT Station ID: [id number]
[2023-03-15 09:18] LABS: ABG BASE EXCESS -0.4 mmol/L (-2.0-3.0); ABG HCO3 29.1 mmol/L (22.0-26.0); ABG OXYGEN SATURATION 95 % (94-98); ABG PH 7.22 (7.35-7.45); ABG PO2 87 mmHg (80-100); ABG TCO2 31.4 MMOL/L (21.0-29.0)
[2023-03-15 09:19] LABS: ABG RESPIRATORY RATE 16 b/min; ALLEN TEST POSITIVE
[2023-03-15 09:22] LABS: ABG PCO2 73 mmHg (34-45)
[2023-03-15] MEDS ORDERED: ACETAMINOPHEN 325 MG TABLET PO PRN (10:27)
[2023-03-15] MEDS ORDERED: ONDANSETRON 4 MG/2 ML VIAL IVP PRN (10:27)
[2023-03-15] MEDS ORDERED: IPRATROPIUM/ALBUTEROL 3 ML NEB INH PRN (10:33)
--- NOTE | 2023-03-15 11:38 | HISTORY & PHYSICAL EXAMINATION ---
Chief Complaint - Chief Complaint Chief Complaint: SOA History of Present Illness - Admitted From Admitted From:: ED - History Obtained From History obtained from: ED provider and the patient - History of Present Illness HPI Comment/Other: This is a 67-year-old WM with a history of COPD but he only takes albuterol as needed, no scheduled inhalers, no nebulizers, no other meds and is not on home O2. He is a smoker. He states he has been short of breath progressively wor sening over 1 to 2 weeks and then over the last 2 days he had orthopnea. This morning he awoke and went outside "to get some cool air" and still could not breathe and called EMS. He was given DuoNeb and Solu-Medrol en route. In the ED, he was found to have diffuse wheezing and was in severe respiratory distress. He received DuoNeb here and was started on a BiPAP. The ABG came back showing respiratory acidosis with pH 7.2, PCO2 58 and the repeat ABG had pH 7.2 and PCO2 was 71 so he was kept on BiPAP. His chest x-ray shows interstitial fluffiness but BNP is normal at 33. His D-dimer is within normal limits so he had no chest CT done to look for PE. The ED provider reached out to me and we spoke about this patient. He will be admitted to the ICU for COPD exacerbation requiring BiPAP support for resp failure and hypercapnia. History - Past Medical History Cardiovascular: reports: Hypertension Respiratory: reports: COPD Neuro: reports: Other (Peripheral neuropathy and has no feeling in both feet he says) Endocrine/Autoimmune: reports: None GI: reports: None : reports: None Psych: reports: None Musculoskeletal: reports: Chronic back pain Derm: reports: Other (Chronic wound of his right leg, followed at [place] wound clinic once a week and is in a "cast") MRSA Hx?: Yes - Family & Social History Living arrangement: At home Living Situation: Alone Social History Notes: He smokes cigarettes daily, he drinks 3 beers a daily - POLST Patient has POLST: No Meds/Allgy - Home Medications Home Medications: Ambulatory Orders Medication Instructions Recorded Confirmed Albuterol Sulfate [Albuterol 2 - 4 puffs IH RTQ4H PRN 03/01/20 03/15/23 Sulfate Hfa] hydroCHLOROthiazide 25 mg PO DAILY 03/01/20 03/15/23 [Hydrochlorothiazide] Methadone HCl 10 mg PO TID 05/31/21 03/15/23 Furosemide [Lasix] 20 mg PO DAILY 03/15/23 03/15/23 lisinopriL [Lisinopril] 40 mg PO DAILY 03/15/23 03/15/23 - Allergies Allergies/Adverse Reactions: Allergies Allergy/AdvReac Type Severity Reaction Status Date / Time No Known Drug Allergies Allergy Verified 03/15/23 07:04 Review of Systems - Constitutional Constitutional: reports: Weakness (when SOB) - Respiratory Respiratory: reports: Wheezing, SOB at rest, SOB with exertion - Integumentary Integumentary: reports: Other (Chronic wound right foot which is in a "cast") - Neurological Neurological: reports: Other (No sensation in both his feet) - All Other Systems All Other Systems: reports: Reviewed and negative Exam - Vital Signs Reviewed Vital Signs: Yes Vital Signs: Vital Signs x48h Temp Pulse Resp BP Pulse Ox 03/15/23 11:14 90 16 127/91 H 96 03/15/23 11:03 115 H 03/15/23 10:18 92 14 109/70 98 03/15/23 09:31 105 H 16 03/15/23 09:21 95 03/15/23 09:04 87 13 109/70 98 03/15/23 08:08 102 H 20 162/84 H 100 03/15/23 07:54 96 17 03/15/23 07:22 102 H 17 03/15/23 07:05 108 H 03/15/23 07:00 109 H 22 162/84 H 95 03/15/23 06:56 36.5 C 22 L 26 H 145/95 H 100 - Physical Exam General Appearance: positive: Moderate distress (He took off the BiPAP, wanting to eat lunch, he is finishing complete sentences but then is tachypneic), Other (Obese, disheveled) Eyes Bilateral: positive: Normal inspection ENT: positive: ENT inspection nml, No signs of dehydration Neck: positive: Nml inspection, Other (Cannot evaluate JVP due to large feng and obese neck) Respiratory: positive: Wheezes (Prolonged expiratory phase, wheezing in all lung romero), Other (Increased AP diameter) Cardiovascular: positive: Other (Heart sounds are inaudible due to wheezing in all lung romero) Abdomen: positive: Non-tender, Other (Obese with a pannus) Skin: positive: Warm, Dry Extremities: positive: No pedal edema, Other (Right leg is in a cast up to his knee and then in a boot) Neurologic/Psychiatric: positive: Oriented x3, Motor nml, Other (No sensation left foot) Conclusion/Plan - Problem List (1) Acute respiratory failure with hypercapnia Conclusion/Plan: The patient was already on supplemental O2 when being brought in by ambulance, we do not have a room air saturation documented. His first ABG showed PCO2 53, the next 1 repeated showed PCO2 73. Plan: Admit to ICU Continue on BiPAP to treat his hypercapnia causing respiratory acidosis, continuing BiPAP I will order a liquid lunch so he can take off his BiPAP briefly, then will advance diet when he can tolerate being off BIPAP support He was interested in getting home O2 if he qualifies, he said. I told him he will have an oximetry walk test on the day of discharge to see if he needs home O2 (2) COPD exacerbation Conclusion/Plan: He was in respiratory distress and had diffuse wheezing documented in ER. Chest x-ray read as having interstitial changes suggesting pulmonary edema however his BNP is normal and those changes could be chronic from underlying fibrosis, for example. Also, D-dimer was norrmal, so no PE W/U by CT was done Plan: Will order scheduled and as needed DuoNebs Pulmicort nebulized twice daily IV steroids Obtain sputum culture if it makes sputum. Then we will start him on empiric Le vaquin or Zithromax plus ceftriaxone Start Mucinex for expectorant (3) Tobacco use Conclusion/Plan: As per history. Plan: Nicotine patch (4) Alcohol use Conclusion/Plan: He told his RN he drinks 3 beers a day. His LFTs are normal. No INR was done. He does have an elevated MCV. His platelets are normal Plan: CIWA protocol and as needed Ativan I will order 1 beer with lunch and 1 beer with dinner for him, to avoid alcohol withdrawal (5) Chronic wound Conclusion/Plan: He has a chronic wound right foot He goes to Wound clinic weekly in [place] and is in a"cast" No orders for this while here - Lab Results Fish Bones: 03/15/23 07:00 03/15/23 07:00 - Diagnostic Imaging Results Diagnostic Imaging Results: positive: Final report reviewed - Other Other Results/Comments: Attestation: The patient is expected to be hospitalized for greater than 2 m idnights and is expected to be discharged or transferred to another facility within 96 hours: Yes.
[2023-03-15 12:38] LABS: ABG PH 7.26 (7.35-7.45)
[2023-03-15 12:39] LABS: ABG BASE EXCESS -0.5 mmol/L (-2.0-3.0); ABG HCO3 27.9 mmol/L (22.0-26.0); ABG TCO2 29.9 MMOL/L (21.0-29.0)
[2023-03-15 12:40] LABS: ABG RESPIRATORY RATE 16 b/min
[2023-03-15 12:44] LABS: ABG OXYGEN SATURATION 66 % (94-98); ABG PCO2 64 mmHg (34-45); ABG PO2 37 mmHg (80-100)
[2023-03-15] MEDS: guaiFENesin 600 MG TABLET PO SCH ×2 (13:42→20:43)
[2023-03-15] MEDS ORDERED: LORazepam 2 MG/ML VIAL IVP PRN (14:07)
[2023-03-15] MEDS: BUDESONIDE 0.5 MG/2 ML NEB INH SCH ×2 (14:08→17:36)
[2023-03-15] MEDS: IPRATROPIUM/ALBUTEROL 3 ML NEB INH SCH ×2 (14:08→17:36)
[2023-03-15 14:15] LABS: ABG BASE EXCESS -1.7 mmol/L (-2.0-3.0); ABG HCO3 25.7 mmol/L (22.0-26.0); ABG PCO2 55 mmHg (34-45); ABG PH 7.29 (7.35-7.45); ABG TCO2 27.4 MMOL/L (21.0-29.0)
[2023-03-15 14:16] LABS: ABG RESPIRATORY RATE 16 b/min
[2023-03-15 14:19] LABS: ABG OXYGEN SATURATION 63 % (94-98); ABG PO2 34 mmHg (80-100)
--- NOTE | 2023-03-15 14:20 | PHARMACY PROGRESS NOTE ---
- Best Possible Medication History Admit Date and Time: 03/15/23 1027 Processed by: Pharmacy Medication History completed: Yes Patient Interview: Completed Secondary Source(s): Insurance records As the person ultimately responsible for medication therapy, providers are able to order a medication from an existing home medication list in [facility] via the "Reconcile Routine" prior to Confirmation of that medication by support clerk. Such practice is discouraged except when the physician, in their clinical judgment, deems that a medical need exists for a medication without regard to previous use.
[2023-03-15] MEDS: NICOTINE 14 MG PATCH TOP SCH (14:55)
[2023-03-15] MEDS: BEER 355 ML BOTTLE PO SCH ×2 (14:57→17:15)
[2023-03-15] MEDS: methylPREDNISolone SUCCINATE 40 MG/ML VIAL IVP SCH ×2 (14:57→20:43)
[2023-03-15] MEDS: SODIUM CHLORIDE FLUSH 0.9% 10 ML SYRINGE IVP SCH ×2 (17:15→20:44)
[2023-03-15] MEDS ORDERED: BUDESONIDE 0.5 MG/2 ML NEB INH SCH (19:00)
[2023-03-15] MEDS ORDERED: METHADONE 5 MG TABLET PO ONE (19:05)
[2023-03-15] MEDS ORDERED: METHADONE 5 MG TABLET PO SCH (22:00)
[2023-03-16] MEDS: METHADONE 5 MG TABLET PO SCH ×3 (05:20→21:47)
[2023-03-16] MEDS: SODIUM CHLORIDE FLUSH 0.9% 10 ML SYRINGE IVP PRN ×2 (05:20→06:39)
[2023-03-16 06:05] LABS: BASOPHILS % (AUTO) 0.1 %; HCT - HEMATOCRIT 39.9 % (42.0-52.0); HGB - HEMOGLOBIN 12.7 g/dL (14.0-18.0); LYMPHOCYTES # (AUTO) 0.5 10^3/uL (1.5-3.5); LYMPHOCYTES % (AUTO) 3.7 %; MEAN CORPUSCULAR HEMOGLOBIN 32.9 pg (27.0-31.0); MEAN CORPUSCULAR HGB CONC 31.8 g/dL (32.0-36.0); MEAN CORPUSCULAR VOLUME 103.4 fL (80.0-94.0); MEAN PLATELET VOLUME 9.7 fL (7.4-11.4); MONOCYTES # (AUTO) 0.4 10^3/uL (0.0-1.0); MONOCYTES % (AUTO) 2.9 %; NEUTROPHILS # (AUTO) 12.6 10^3/uL (1.5-6.6); NEUTROPHILS % (AUTO) 92.9 %; PLT - PLATELET COUNT 232 10^3/uL (130-450); RED BLOOD COUNT 3.86 10^6/uL (4.70-6.10); RED CELL DISTRIBUTION WIDTH 13.4 % (12.0-15.0); WHITE BLOOD COUNT 13.6 x10^3/uL (4.8-10.8)
[2023-03-16 06:07] LABS: VBG PH 7.306 (7.31-7.41)
[2023-03-16 06:08] LABS: CALCIUM, IONIZED 1.18 mmol/L (1.15-1.33)
[2023-03-16 06:19] LABS: CALCIUM 9.8 mg/dL (8.5-10.3); CREATININE 0.9 mg/dL (0.6-1.3); MAGNESIUM 2.1 mg/dL (1.7-2.3); PHOSPHORUS 2.7 mg/dL (2.5-5.0); POTASSIUM 4.8 mmol/L (3.5-4.5)
[2023-03-16] MEDS: methylPREDNISolone SUCCINATE 40 MG/ML VIAL IVP SCH ×3 (06:39→21:46)
[2023-03-16] MEDS: PANTOPRAZOLE 40 MG TABLET PO SCH (06:39)
[2023-03-16] MEDS: IPRATROPIUM/ALBUTEROL 3 ML NEB INH SCH ×4 (07:29→19:12)
[2023-03-16] MEDS: BUDESONIDE 0.5 MG/2 ML NEB INH SCH ×2 (07:29→19:12)
[2023-03-16] MEDS: SODIUM CHLORIDE FLUSH 0.9% 10 ML SYRINGE IVP SCH ×2 (08:55→17:18)
[2023-03-16] MEDS: ENOXAPARIN 40 MG/0.4 ML SYRINGE SUBQ SCH (08:55)
[2023-03-16] MEDS: NICOTINE 14 MG PATCH TOP SCH (08:55)
--- NOTE | 2023-03-16 08:56 | PROVIDER PROGRESS NOTE ---
Subjective - Subjective Pt reports feeling: Improved (He feels overall better but describes 1 episode of "panic attack" overnight, when he was off his BiPAP and went to the bathroom.) Objective - Vital Signs/Intake & Output Reviewed Vital Signs: Yes Vital Signs: Vital Signs Pulse Pulse Resp BP Pulse Ox O2 Flow Rate 03/16/23 07:32 78 18 03/16/23 07:00 77 18 115/68 94 03/16/23 06:38 82 17 117/74 96 03/16/23 05:00 83 18 127/82 H 95 03/16/23 04:59 84 16 4 Intake & Output: Intake & Output 03/13/23 03/14/23 03/15/23 03/16/23 23:59 23:59 23:59 23:59 Intake Total 740 150 Output Total 1200 450 Balance -460 -300 - Objective General Appearance: positive: No acute distress, Alert Eyes Bilateral: positive: Normal inspection ENT: positive: No signs of dehydration, Other (Disheveled. Wearing BIPAP mask.) Neck: positive: Other (Cannot evaluate JVP due to obese neck and long feng) Respiratory: positive: Wheezes (Less prominent wheezes, now scattered, better air movement in all lung romero) Cardiovascular: positive: Regular rate & rhythm, Other (distant heart sounds due to obesity and increased AP diameter) Abdomen: positive: Non-tender, Other (Obese) Skin: positive: Warm, Dry Extremities: positive: No pedal edema, Other (R leg in cast, then in boot) - Lab Results Fish Bones: 03/16/23 05:58 03/16/23 05:58 Other Labs: Lab Results x24hrs 03/16/23 03/16/23 03/16/23 Range/Units 05:58 05:58 05:58 WBC 13.6 H (4.8-10.8) x10^3/uL RBC 3.86 L (4.70-6.10) 10^6/uL Hgb 12.7 L (14.0-18.0) g/dL Hct 39.9 L (42.0-52.0) % MCV 103.4 H (80.0-94.0) fL MCH 32.9 H (27.0-31.0) pg MCHC 31.8 L (32.0-36.0) g/dL RDW 13.4 (12.0-15.0) % Plt Count 232 (130-450) 10^3/uL MPV 9.7 (7.4-11.4) fL Neut # (Auto) 12.6 H (1.5-6.6) 10^3/uL Lymph # (Auto) 0.5 L (1.5-3.5) 10^3/uL [place] # (Auto) 0.4 (0.0-1.0) 10^3/uL Eos # (Auto) 0.0 (0.0-0.7) 10^3/uL Baso # (Auto) 0.0 (0.0-0.1) 10^3/uL Absolute Nucleated RBC 0.00 x10^3/uL Nucleated RBC % 0.0 /100WBC D-Dimer (200.0-255.0) ng/mL Bld Gas Analysis Time Sample Site ABG pH (7.35-7.45) ABG pCO2 (34-45) mmHg ABG pO2 (80-100) mmHg ABG HCO3 (22.0-26.0) mmol/L ABG Total CO2 (21.0-29.0) MMOL/L ABG O2 Saturation (94-98) % ABG Base Excess (-2.0-3.0) mmol/L Simba Test VBG pH 7.306 L (7.31-7.41) Ionized Calcium 1.18 (1.15-1.33) mmol/L Respiration Rate b/min O2 Delivery Device FiO2 EPAP cmH2O IPAP cmH2O Sodium 135 (135-145) mmol/L Potassium 4.8 H (3.5-4.5) mmol/L Chloride 97 L (101-111) mmol/L Carbon Dioxide 34 H (21-32) mmol/L Anion Gap 4.0 L (6-13) BUN 22 H (6-20) mg/dL Creatinine 0.9 (0.6-1.3) mg/dL Estimated GFR (MDRD) 84 L (>89) Glucose 139 H (74-104) mg/dL Calcium 9.8 (8.5-10.3) mg/dL Phosphorus 2.7 (2.5-5.0) mg/dL Magnesium 2.1 (1.7-2.3) mg/dL Nasal Screen MRSA (PCR) (NEGATIVE) 03/15/23 03/15/23 03/15/23 Range/Units 12:50 12:15 12:15 WBC (4.8-10.8) x10^3/uL RBC (4.70-6.10) 10^6/uL Hgb (14.0-18.0) g/dL Hct (42.0-52.0) % MCV (80.0-94.0) fL MCH (27.0-31.0) pg MCHC (32.0-36.0) g/dL RDW (12.0-15.0) % Plt Count (130-450) 10^3/uL MPV (7.4-11.4) fL Neut # (Auto) (1.5-6.6) 10^3/uL Lymph # (Auto) (1.5-3.5) 10^3/uL [place] # (Auto) (0.0-1.0) 10^3/uL Eos # (Auto) (0.0-0.7) 10^3/uL Baso # (Auto) (0.0-0.1) 10^3/uL Absolute Nucleated RBC x10^3/uL Nucleated RBC % /100WBC D-Dimer (200.0-255.0) ng/mL Bld Gas Analysis Time 1300 1229 Sample Site LEFT BRACHIAL LEFT BRACHIAL ABG pH 7.29 L 7.26 L (7.35-7.45) ABG pCO2 55 H 64 H* (34-45) mmHg ABG pO2 34 L* 37 L* (80-100) mmHg ABG HCO3 25.7 27.9 H (22.0-26.0) mmol/L ABG Total CO2 27.4 29.9 H (21.0-29.0) MMOL/L ABG O2 Saturation 63 L* 66 L* (94-98) % ABG Base Excess -1.7 -0.5 (-2.0-3.0) mmol/L Simba Test NOT APPLICABLE NOT APPLICABLE VBG pH (7.31-7.41) Ionized Calcium (1.15-1.33) mmol/L Respiration Rate 16 16 b/min O2 Delivery Device BiPAP BiPAP FiO2 30.00 30.00 EPAP 5 5 cmH2O IPAP 16 cmH2O Sodium (135-145) mmol/L Potassium (3.5-4.5) mmol/L Chloride (101-111) mmol/L Carbon Dioxide (21-32) mmol/L Anion Gap (6-13) BUN (6-20) mg/dL Creatinine (0.6-1.3) mg/dL Estimated GFR (MDRD) (>89) Glucose (74-104) mg/dL Calcium (8.5-10.3) mg/dL Phosphorus (2.5-5.0) mg/dL Magnesium (1.7-2.3) mg/dL Nasal Screen MRSA (PCR) NEGATIVE (NEGATIVE) 03/15/23 03/15/23 Range/Units 09:42 09:10 WBC (4.8-10.8) x10^3/uL RBC (4.70-6.10) 10^6/uL Hgb (14.0-18.0) g/dL Hct (42.0-52.0) % MCV (80.0-94.0) fL MCH (27.0-31.0) pg MCHC (32.0-36.0) g/dL RDW (12.0-15.0) % Plt Count (130-450) 10^3/uL MPV (7.4-11.4) fL Neut # (Auto) (1.5-6.6) 10^3/uL Lymph # (Auto) (1.5-3.5) 10^3/uL [place] # (Auto) (0.0-1.0) 10^3/uL Eos # (Auto) (0.0-0.7) 10^3/uL Baso # (Auto) (0.0-0.1) 10^3/uL Absolute Nucleated RBC x10^3/uL Nucleated RBC % /100WBC D-Dimer 257.8 H (200.0-255.0) ng/mL Bld Gas Analysis Time 0917 Sample Site RIGHT RADIAL ABG pH 7.22 L (7.35-7.45) ABG pCO2 73 H* (34-45) mmHg ABG pO2 87 (80-100) mmHg ABG HCO3 29.1 H (22.0-26.0) mmol/L ABG Total CO2 31.4 H (21.0-29.0) MMOL/L ABG O2 Saturation 95 (94-98) % ABG Base Excess -0.4 (-2.0-3.0) mmol/L Simba Test POSITIVE VBG pH (7.31-7.41) Ionized Calcium (1.15-1.33) mmol/L Respiration Rate 16 b/min O2 Delivery Device BiPAP FiO2 35.00 EPAP 5 cmH2O IPAP 15 cmH2O Sodium (135-145) mmol/L Potassium (3.5-4.5) mmol/L Chloride (101-111) mmol/L Carbon Dioxide (21-32) mmol/L Anion Gap (6-13) BUN (6-20) mg/dL Creatinine (0.6-1.3) mg/dL Estimated GFR (MDRD) (>89) Glucose (74-104) mg/dL Calcium (8.5-10.3) mg/dL Phosphorus (2.5-5.0) mg/dL Magnesium (1.7-2.3) mg/dL Nasal Screen MRSA (PCR) (NEGATIVE) Assessment/Plan - Problem List (1) Acute respiratory failure with hypercapnia Impression: The patient was already on supplemental O2 when being brought in by ambulance, we do not have a room air saturation documented. His first ABG showed PCO2 53, the next a repeated ABG yesterday showed PCO2 73. he was put on BIPAP starting in the ER, then admitted to ICU. Plan: Continue on BiPAP to treat his hypercapnia causing respiratory acidosis Advance diet as tolerated for being off BIPAP support His FiO2 is 30%, we will titrate this down keeping sats greater than 88% He was interested in getting home O2 if he qualifies, he said. I told him he will have an oximetry walk test on the day of discharge to see if he needs home O2 (2) COPD exacerbation Conclusion/Plan: He was in severe respiratory distress and had diffuse wheezing documented in ER. Chest x-ray read as having interstitial changes suggesting pulmonary edema however his BNP is normal and those changes could be chronic interstitial changes from underlying fibrosis, for example. Also, D-dimer was normal, so no PE W/U by CT was done. Today we obtained a sputum sample, will send off for culture Plan: Cont the scheduled and the prn DuoNebs Cont Pulmicort nebulized twice daily Cont IV steroids, Solumedrol 80 TID I will start him on empiric po Zithromax and iv Ceftriaxone. Await sputum cx results to tailor antibx Cont Mucinex for expectorant Will add Singulair po at hs (3) Tobacco use Conclusion/Plan: As per history. Plan: Nicotine patch ordered (4) Alcohol use Conclusion/Plan: He drinks 3 beers a day. His LFTs are normal. No INR was done. He does have an elevated MCV. His platelets are normal. He is scoring low on his CIWA score card Plan: CIWA protocol was ordered with as needed Ativan Cont the order for 1 beer with lunch and 1 beer with dinner for him, to avoid alcohol withdrawal (5) Chronic wound Conclusion/Plan: He has a chronic wound right foot. It is in a hard cast, which is then in a boot. He goes to Wound clinic weekly on Wednesdays in [place] He claims he has neuropathy of both feet, and feels no pain. He is not on any neuropathy meds however. Plan: No orders for this while here (6) Chronic low back painM54.50 At home he takes methadone 3 times daily for his LBP I resumed his TID oral methadone to use while he is here
[2023-03-16] MEDS: guaiFENesin 600 MG TABLET PO SCH ×2 (09:31→21:46)
[2023-03-16] MEDS: hydroCHLOROthiazide 25 MG TABLET PO SCH (09:31)
[2023-03-16] MEDS: FUROSEMIDE 20 MG TABLET PO SCH (09:31)
[2023-03-16] MEDS: lisinopriL 20 MG TABLET PO SCH (09:31)
[2023-03-16] MEDS ORDERED: AZITHROMYCIN 250 MG TABLET PO STA (10:03)
[2023-03-16] MEDS: cefTRIAXone 1 GM in SODIUM CHLORIDE 0.9% MINIBAG 100 ML IV SCH (10:43)
[2023-03-16] MEDS: BEER 355 ML BOTTLE PO SCH ×2 (12:37→17:17)
[2023-03-17 05:11] LABS: BASOPHILS % (AUTO) 0.1 %; CALCIUM, IONIZED 1.11 mmol/L (1.15-1.33); HCT - HEMATOCRIT 37.9 % (42.0-52.0); HGB - HEMOGLOBIN 12.1 g/dL (14.0-18.0); LYMPHOCYTES # (AUTO) 0.4 10^3/uL (1.5-3.5); LYMPHOCYTES % (AUTO) 3.2 %; MEAN CORPUSCULAR HEMOGLOBIN 33.2 pg (27.0-31.0); MEAN CORPUSCULAR HGB CONC 31.9 g/dL (32.0-36.0); MEAN CORPUSCULAR VOLUME 103.8 fL (80.0-94.0); MEAN PLATELET VOLUME 10.2 fL (7.4-11.4); MONOCYTES # (AUTO) 0.4 10^3/uL (0.0-1.0); NEUTROPHILS # (AUTO) 12.4 10^3/uL (1.5-6.6); NEUTROPHILS % (AUTO) 93.2 %; PLT - PLATELET COUNT 226 10^3/uL (130-450); RED BLOOD COUNT 3.65 10^6/uL (4.70-6.10); RED CELL DISTRIBUTION WIDTH 13.6 % (12.0-15.0); VBG PH 7.442 (7.31-7.41); WHITE BLOOD COUNT 13.2 x10^3/uL (4.8-10.8)
[2023-03-17] MEDS: METHADONE 5 MG TABLET PO SCH ×2 (05:20→13:29)
[2023-03-17] MEDS: methylPREDNISolone SUCCINATE 40 MG/ML VIAL IVP SCH (05:21)
[2023-03-17 05:28] LABS: CALCIUM 9.3 mg/dL (8.5-10.3); MAGNESIUM 2.2 mg/dL (1.7-2.3); PHOSPHORUS 2.5 mg/dL (2.5-5.0); POTASSIUM 4.4 mmol/L (3.5-4.5)
[2023-03-17] MEDS: BUDESONIDE 0.5 MG/2 ML NEB INH SCH (07:11)
[2023-03-17] MEDS: IPRATROPIUM/ALBUTEROL 3 ML NEB INH SCH ×2 (07:11→11:33)
[2023-03-17] MEDS ORDERED: methylPREDNISolone SUCCINATE 40 MG/ML VIAL IVP SCH ×2 (08:00→14:00)
[2023-03-17] MEDS: hydroCHLOROthiazide 25 MG TABLET PO SCH (08:18)
[2023-03-17] MEDS: SODIUM CHLORIDE FLUSH 0.9% 10 ML SYRINGE IVP SCH (08:18)
[2023-03-17] MEDS: lisinopriL 20 MG TABLET PO SCH (08:19)
[2023-03-17] MEDS: FUROSEMIDE 20 MG TABLET PO SCH (08:19)
[2023-03-17] MEDS: guaiFENesin 600 MG TABLET PO SCH (08:19)
[2023-03-17] MEDS: PANTOPRAZOLE 40 MG TABLET PO SCH (08:19)
[2023-03-17] MEDS: ENOXAPARIN 40 MG/0.4 ML SYRINGE SUBQ SCH (08:20)
[2023-03-17] MEDS: cefTRIAXone 1 GM in SODIUM CHLORIDE 0.9% MINIBAG 100 ML IV SCH (08:20)
[2023-03-17] MEDS: SENNA 8.6 MG TABLET PO SCH ×2 (08:24→12:09)
[2023-03-17] MEDS: NICOTINE 14 MG PATCH TOP SCH (08:47)
[2023-03-17] MEDS ORDERED: AZITHROMYCIN 250 MG TABLET PO SCH (09:00)
[2023-03-17] MEDS: BEER 355 ML BOTTLE PO SCH (11:57)
--- NOTE | 2023-03-17 13:22 | Discharge Plan ---
Discharge Plan Problem Reviewed?: Yes Disposition: Home, Self Care Condition: Fair Prescriptions: Amox/Clav 875/125 [Augmentin 875/125 Tab] 1 tablet PO Q12H 5 Days #10 tablet methylPREDNISolone [Medrol Dose Pack] 1 each PO .PACKAGEINSTRUCTIONS 6 Days #1 each guaiFENesin [Mucinex] 600 mg PO BID #10 tab Nicotine 14 mg Patch [Nicoderm] 1 patch TOP DAILY #14 patch Albuterol Sulfate [Proair Respiclick] 2 puffs IH QID #1 each Montelukast [Singulair] 10 mg PO QPM #30 tablet Budesonide/Formoterol Fumarate [Symbicort 80-4.5 Mcg Inhaler] 2 puffs IH BID #1 ea Diet: Low Sodium Activity Restrictions: Activity as Tolerated Shower Restrictions: No Driving Restrictions: No Weight Bearing: Full Weight Instruction Topics: Disease Chronic Lung Quit Smoking, Chronic Lung Disease Stress, Oxygen Home Use, Coughing Techniques Dc Health Concerns: You were hospitalized to treat severe shortness of breath, with low oxygen levels and we found you to have bronchitis and a COPD exacerbation. You needed to be on a breathing machine in the ICU to help your lungs (a BiPAP machine). We treated your underlying lung problem and slowly the supplemental oxygen was able to be decreased. You are being discharged home today with a new order for home oxygen. It should be set at 1L/min at rest and used continuously, but increase it to 2L/min of oxygen during any activity. You are being discharged on many new medications for your lungs. They were all electronically prescribed to your [facility] pharmacy in [place]. Continued cigarette smoking is what has caused your COPD and you need to stop smoking. DO NOT SMOKE NEAR YOUR OXYGEN FOR RISK OF CAUSING A FIRE. Please see your Primary Care Provider in the next 1 to 2 weeks for hospital follow-up visit. You qualify for attending pulmonary rehab here in the [facility] on the ground floor. This would help your lungs get stronger and is highly recommended. Your PCP would need to order this. Plan of Treatment: As above. Care Goals: Improvement in symptoms and stabilization are the goals. Assessment: Patient understands and is agreeable with the plan. Additional Instructions or Follow Up instructions: If you have new or worsening symptoms, call your primary care provider for advice, or come to the ER. Follow-Up Care: [facility] - Pulmonary No Smoking: If you smoke, Please STOP! Call for help. Follow-up with: Rick Joseph MD [Provider Admit Priv/Credential] -
--- NOTE | 2023-03-17 13:43 | DISCHARGE SUMMARY ---
Discharge Summary Admit Date: 03/15/23 Discharge Date: 03/17/23 Discharging Provider: Dr Roxy Vasquez Primary Care Provider: Dr Rick Joseph Condition at Discharge: Stable Discharge Disposition: 01 Home, Self Care - HPI History of Present Illness: This is a 67-year-old WM with a history of COPD but he only takes albuterol as needed, no scheduled inhalers, no nebulizers, no other meds and is not on home O2. He is a smoker. He states he has been short of breath progressively worsening over 1 to 2 weeks and then over the last 2 days he had orthopnea. This morning he awoke and went outside "to get some cool air" and still could not breathe and called EMS. He was given DuoNeb and Solu-Medrol en route. In the ED, he was found to have diffuse wheezing and was in severe respiratory distress. He received DuoNeb here and was started on a BiPAP. The ABG came back showing respiratory acidosis with pH 7.2, PCO2 58 and the repeat ABG had pH 7.2 and PCO2 was 71 so he was kept on BiPAP. His chest x-ray shows interstitial fluffiness but BNP is normal at 33. His D-dimer is within normal limits so he had no chest CT done to look for PE. The ED provider reached out to me and we spoke about this patient. He will be admitted to the ICU for COPD exacerbation requiring BiPAP support for resp failure and hypercapnia. - HOSPITAL COURSE Hospital Course: (1) Acute respiratory failure with hypercapnia The patient had not been on home O2, but was already on supplemental O2 when being transported in by ambulance. We did not have a room air saturation documented in our ER. His first ABG showed PCO2 53, the next ABG showed PCO2 73. He was put on BIPAP starting in the ER, then admitted to ICU. His D-dimer wa s normal, so no PE W/U by CT was done. We continue him on BiPAP to treat his hypercapnia causing respiratory acidosis. After 2 nights he did not need the BiPAP and was transitioned to nasal cannula oxygen. On the day of discharge he underwent an oximetry walk test: On room air at rest his O2 saturation was 86%. On 1 L O2 at rest his saturation was 90%. On 2 L O2 at rest his saturation was 94%. With ambulation using 1 L, his O2 saturation was 90%. With ambulation using 2 L, his O2 saturation was 92%. I am ordering new oxygen for his home to use to prevent COPD exacerbation and rehospitalization. It should be set at 1 L at rest, continuously and 2 L with activity. (2) COPD exacerbation He was in severe respiratory distress and had diffuse wheezing and poor air m ovement. Chest x-ray showed interstitial changes suggesting pulmonary edema however his BNP was normal and the changes were possibly chronic. He was started on DuoNebs 4 times daily, IV steroids, nebulized Pulmicort twice daily, and oral Mucinex and Singulair. He produced a sputum sample after a day and was then put on empiric antibiotics. He improved significantly every day. He was able to be discharged and was prescribed a tapering down Medrol Dose-Josafat, 5 days of Augmentin and Mucinex tabs, new Singulair every night, new Symbacort inh BID, and a new Albuterol inh was refilled. Patient was told he qualifies for and would benefit from attending pulmonary rehab at the [facility] here at [facility]. (3) Tobacco use Smoking cessation was doscussed. Nicotine patch ordered to use here and prescribed after discharge, to quit smoking. (4) Alcohol use He drinks 3 beers a day. His LFTs were normal. No INR was done. He does have an elevated MCV. His platelets are normal. He was scoring low on his CIWA score card and Ativan iv was minimally needed. (5) Chronic wound He has a chronic wound on his right foot. It is in a hard cast, which is then in a boot. He goes to Wound clinic weekly on Wednesdays in [place]. He claims he has neuropathy of both feet, and feels no pain. He is not on any neuropathy meds however. (6) Chronic low back painM54.50 At home he takes oral methadone 3 times daily for his LBP, which was ordered to use here. - ALLERGIES Allergies/Adverse Reactions: Allergies Allergy/AdvReac Type Severity Reaction Status Date / Time No Known Drug Allergies Allergy Verified 03/15/23 07:04 - MEDICATIONS Home Medications: Ambulatory Orders Medication Instructions Recorded Confirmed Albuterol Sulfate [Albuterol 2 - 4 puffs IH RTQ4H PRN 03/01/20 03/15/23 Sulfate Hfa] hydroCHLOROthiazide 25 mg PO DAILY 03/01/20 03/15/23 [Hydrochlorothiazide] Methadone HCl 10 mg PO TID 05/31/21 03/15/23 Furosemide [Lasix] 20 mg PO DAILY 03/15/23 03/15/23 Albuterol Sulfate [Proair 2 puffs IH QID #1 each 03/17/23 Respiclick] Amox/Clav 875/125 [Augmentin 1 tablet PO Q12H 5 Days #10 tablet 03/17/23 875/125 Tab] Budesonide/Formoterol Fumarate 2 puffs IH BID #1 ea 03/17/23 [Symbicort 80-4.5 Mcg Inhaler] Montelukast [Singulair] 10 mg PO QPM #30 tablet 03/17/23 Nicotine 14 mg Patch [Nicoderm] 1 patch TOP DAILY #14 patch 03/17/23 guaiFENesin [Mucinex] 600 mg PO BID #10 tab 03/17/23 methylPREDNISolone [Medrol Dose 1 each PO .PACKAGEINSTRUCTIONS 6 03/17/23 Pack] Days #1 each - PHYSICAL EXAM AT DISCHARGE General Appearance: positive: No acute distress, Alert, Other (Disheveled with long hair and a long feng) Eyes Bilateral: positive: Normal inspection, EOMI ENT: positive: ENT inspection nml, No signs of dehydration Neck: positive: Nml inspection, Other (Cannot evaluate JVP due to his long feng) Respiratory: positive: No respiratory distress, Breath sounds nml Cardiovascular: positive: Regular rate & rhythm, No murmur Abdomen: positive: Non-tender, No distention, Other (Obese) Skin: positive: Warm, Dry Extremities: positive: Non-tender, No pedal edema Neurologic/Psychiatric: positive: Oriented x3, Motor nml - LABS Result Diagrams: 03/17/23 04:41 03/17/23 04:41 - DIAGNOSTIC IMAGING Diagnostic Imaging Results: Final report reviewed - FOLLOW UP Follow Up: See PCP in 1 to 2 weeks for hospital follow-up visit. Patient qualifies and would benefit from attending pulmonary rehab at the [facility] here at [facility]. - TIME SPENT Time Spent in Discharge (Minutes): 45
[2023-03-17 14:44] VITALS: BP 136/87; O2SAT 91
== END 2023-03-17 14:46 | disposition home or self-care (01) | DRG 189 ==
LOC: EDUNIT# → ED 06:47 → ICU 10:27
PROVIDERS: ADMIT Internal Medicine; ATTEND Internal Medicine
DX: J96.02 Acute respiratory failure with hypercapnia (principal); R07.9 Chest pain, unspecified; M79.10 Myalgia, unspecified site; R09.81 Nasal congestion; J02.9 Acute pharyngitis, unspecified; J44.1 Chronic obstructive pulmonary disease with (acute) exacerbation; F17.200 Nicotine dependence, unspecified, uncomplicated; R06.89 Other abnormalities of breathing; Z20.822 Contact with and (suspected) exposure to COVID-19; S91.301A Unspecified open wound, right foot, initial encounter; X58.XXXA Exposure to other specified factors, initial encounter; G89.29 Other chronic pain; M54.50 Low back pain, unspecified; E66.9 Obesity, unspecified; G62.9 Polyneuropathy, unspecified; I10 Essential (primary) hypertension; F17.210 Nicotine dependence, cigarettes, uncomplicated; F41.0 Panic disorder [episodic paroxysmal anxiety]; Z68.39 Body mass index [BMI] 39.0-39.9, adult; Z79.899 Other long term (current) drug therapy
CPT/HCPCS: 36415; 36600; 71045; 80048; 80053; 82330; 82803; 83690; 83735; 83880; 84100; 85025; 85379; 87070; 87150; 87205; 87633; 94640; 94660; 94761; 97162; 97530; A9270; J1650; J7626; 99285; 99291

== ENCOUNTER 2023-04-11 10:38 | Outpatient (CLI) | payer MEDICARE, MEDICAID ==
--- NOTE | 2023-04-11 17:24 | XRAY Report ---
PROCEDURE: Foot 3 View RT INDICATIONS: PAIN IN RIGHT FOOT TECHNIQUE: 3 views of the foot were obtained. COMPARISON: 11/16/2022 FINDINGS: Bones: No fractures or dislocations. No suspicious bony lesions. Degenerative arthritic changes are stable from the prior exam. Generalized decreased osseous mineralization present. Soft tissues: Unremarkable. No radiopaque foreign body. IMPRESSION: Stable degenerative arthritic change Reviewed by: Geovani Giles MD on 04/11/2023 4:22 PM AKDT Approved by: Geovani Giles MD on 04/11/2023 4:22 PM AKDT Station ID: [id number]
== END 2023-04-11 10:39 | disposition home or self-care (01) ==
LOC: DI.S 10:38
PROVIDERS: ATTEND Surgery
DX: M19.071 Primary osteoarthritis, right ankle and foot (principal)

== ENCOUNTER 2023-05-02 12:31 | Outpatient (CLI) | payer MEDICARE, MEDICAID ==
--- NOTE | 2023-05-02 14:55 | Ultrasound Report ---
PROCEDURE: Duplex Ext Veins Right INDICATIONS: RLE SWELLING/REDNESS TECHNIQUE: Real-time imaging, as well as color and pulse Doppler interrogation, were performed of the lower extr emity deep veins from the inguinal ligament to the popliteal fossa. Attempted visualization of the ca lf veins was performed. COMPARISON: None. FINDINGS: The deep veins are normally compressible, and free of intraluminal thrombus. Color and pu lse Doppler demonstrate normal phasic intraluminal flow. There is normal augmentation response to di stal compression maneuver. Saphenofemoral junction is patent. Calf veins are not well seen. Calf carmenza a. IMPRESSION: No right lower extremity DVT. Reviewed by: Olvin Rai MD on 05/02/2023 2:54 PM PDT Approved by: Olvin Rai MD on 05/02/2023 2:54 PM PDT Station ID: [id number]
== END 2023-05-02 12:32 | disposition home or self-care (01) ==
LOC: DI 12:31
PROVIDERS: ATTEND Physician Assistant
DX: R60.0 Localized edema (principal)

== ENCOUNTER 2023-05-09 14:53 | Outpatient (CLI) | payer MEDICARE, MEDICAID ==
--- NOTE | 2023-05-09 16:54 | XRAY Report ---
PROCEDURE: Ankle 3 View RT INDICATIONS: RIGHT ANKLE TECHNIQUE: 3 views of the ankle were acquired. COMPARISON: None. FINDINGS: Bones: Degenerative changes of the right tibiotalar joint. Ankle mortise is normally aligned. No valdez spicious bony lesions. No acute fracture seen. There is new dorsal dislocation of the proximal metata rsal seen only on the lateral view. Please see separate report of the right foot for further informat ion. Soft tissues: No tibiotalar joint effusion. Achilles tendon appears normal. IMPRESSION: Right ankle without acute fracture or dislocation. Partially evaluated, new fracture/dislocation of t he proximal metatarsals better evaluated on comparison right foot radiographic series. Degenerative changes of the tibiotalar joint. Reviewed by: Wolfgang Zamora MD on 05/09/2023 4:53 PM PDT Approved by: Wolfgang Zamora MD on 05/09/2023 4:53 PM PDT Station ID: [id number]
--- NOTE | 2023-05-09 16:57 | XRAY Report ---
PROCEDURE: Foot 3 View RT INDICATIONS: RIGHT FOOT PAIN TECHNIQUE: 3 views of the foot were acquired. COMPARISON: Right foot radiographs dated 04/03/2023 and 11/16/2022. FINDINGS: Bones: There are subacute fractures involving the base of the first and second metatarsals with mild widening of the interspace. Associated reactive changes of subacute fracture healing noted. There is dorsal displacement of the fracture fragment. Background degenerative changes are present. Soft tissues: No suspicious soft tissue calcifications or masses. IMPRESSION: Displaced, subacute fractures of the base of the first and second metatarsals with possible mild wide adrianna of the interspace. This may represent potential concurrent ligamentous injury. Recommend further evaluation with MRI. Reviewed by: Wolfgang Zamora MD on 05/09/2023 4:56 PM PDT Approved by: Wolfgang Zamora MD on 05/09/2023 4:56 PM PDT Station ID: [id number]
== END 2023-05-09 23:59 | disposition home or self-care (01) ==
LOC: DI.S 14:53
PROVIDERS: ATTEND Physician Assistant
DX: S92.311A Displaced fracture of first metatarsal bone, right foot, initial encounter for closed fracture (principal); S92.321A Displaced fracture of second metatarsal bone, right foot, initial encounter for closed fracture; M19.071 Primary osteoarthritis, right ankle and foot

== ENCOUNTER 2023-06-11 12:59 | Outpatient (CLI) | payer MEDICARE, MEDICAID ==
--- NOTE | 2023-06-12 09:00 | XRAY Report ---
PROCEDURE: Foot 3 View BILAT INDICATIONS: DISLOCATION OF TAROMETARTARSAL TECHNIQUE: 3 views of each foot were acquired. COMPARISON: X-ray right foot, 05/09/23. MRI right foot, 06/03/2023. FINDINGS: Right: Lisfranc fractures/dislocations at the 1st through 5th tarsometatarsal joints. Collapse of B ohler angle. No suspicious bony lesions. Moderate degenerative joint disease. Osteopenia. No suspicio us soft tissue calcifications or masses. Left: No fracture or dislocation. No suspicious bony lesions. Moderate degenerative joint disease. O steopenia. No suspicious soft tissue calcifications or masses. IMPRESSION: 1. Lisfranc fractures/dislocations of the right foot. 2. Moderate degenerative joint disease bilaterally. 3. Osteopenia. Reviewed by: Dada Silva MD on 06/12/2023 8:59 AM PST Approved by: Dada Silva MD on 06/12/2023 8:59 AM PST Station ID: [id number]
== END 2023-06-11 13:00 | disposition home or self-care (01) ==
LOC: DI 12:59
PROVIDERS: ATTEND Podiatrist
DX: S93.324D Dislocation of tarsometatarsal joint of right foot, subsequent encounter (principal); M19.072 Primary osteoarthritis, left ankle and foot; M19.071 Primary osteoarthritis, right ankle and foot; M85.872 Other specified disorders of bone density and structure, left ankle and foot; M85.871 Other specified disorders of bone density and structure, right ankle and foot; M60.9 Myositis, unspecified

== ENCOUNTER 2023-06-11 13:00 | Outpatient (CLI) | payer MEDICARE, MEDICAID ==
--- NOTE | 2023-06-11 15:14 | MRI Report ---
PROCEDURE: FOOT WO - RT INDICATIONS: RIGHT FOOT DISLOCATION TECHNIQUE: Noncontrast sagittal T1 spin echo and T2 fast spin echo with fat saturation, long-axis T1 spin echo a nd T2 fast spin echo with fat saturation, short-axis proton density fast spin echo and T2 fast spin e cho with fat saturation through the forefoot. COMPARISON: Prior plain films of the foot dated May 09, 2023 reviewed. FINDINGS: Image quality: Excellent. There is fracture dislocation involving all of the tarsal metatarsal joints consistent with significa nt Lisfranc injury. The degree of displacement involving the fracture dislocation appears to have worsened from a prior p roger films of the foot of May 09, 2023 suggesting developing Charcot change. There is associated marrow edema in the associated affected osseous structures consistent with the in jury. There is mild to moderate myositis pattern. There is moderate edematous changes in the surrounding soft tissues consistent with acute inflammatio n. No loculated fluid collections are identified to suggest focal abscess. Impression: 1. Fracture/dislocation involving all of the tarsal metatarsal joints consistent with significant wit h Lisfranc type injury with developing Charcot change. 2. Marrow edema in all of the metatarsal bases and within the cuboid and cuneiform bones consistent w ith the trauma and inflammation. 3. Moderate edematous changes in the subcutaneous tissues of the mid foot. 4. Mild to moderate myositis. Reviewed by: Rj Nelson MD on 06/11/2023 3:13 PM PST Approved by: Rj Nelson MD on 06/11/2023 3:13 PM PST Station ID: [id number]
--- NOTE | 2023-06-11 15:34 | MRI Report ---
PROCEDURE: ANKLE WO - RT INDICATIONS: RIGHT FOOT DISLOCATION TECHNIQUE: Noncontrast coronal and sagittal T1 spin echo and STIR; axial T1 spin echo and T2 fast spin echo with fat saturation through the right ankle. COMPARISON: None. FINDINGS: Image quality: Excellent. Again noted is a fracture dislocation through all of the tarsal metatarsal joints consistent with sig nificant Lisfranc type injury and developing Charcot change. There is associated marrow edema and inf lammation present involving the affected osseous structures. There also appear to be some some subluxation of the cuboid inferior relative to the calcaneus with t he associated marrow edema. There is tendinopathy and thickening involving the Peroneus brevis and longus tendons and associated mild tenosynovitis. No significant ankle joint effusion is identified. There is some ahop-[id number] degenerative change involving the ankle joint. Achilles tendon appears within normal limits. There is moderate edematous changes involving the soft tissues surrounding the ankle. IMPRESSION: 1. Significant fracture dislocation involving all the tarsal metatarsal joints consistent with signif icant Madeline Franc type injury and a developing Charcot change. 2. Subluxation of the cuboid bone inferiorly as articulation with the calcaneus. 3. Moderate edematous changes in the subcutaneous tissues surrounding the ankle. 4. Mild to moderate degenerative change involving the ankle joint. 5. [id number] tendinopathy and thickening involving the Peroneus brevis and longus tendons with associated mild tenosynovitis. Reviewed by: Rj Nelson MD on 06/11/2023 3:32 PM PST Approved by: Rj Nelson MD on 06/11/2023 3:32 PM PST Station ID: [id number]
== END 2023-06-11 13:01 | disposition home or self-care (01) ==
LOC: DI 13:00
PROVIDERS: ATTEND Podiatrist
DX: S93.324D Dislocation of tarsometatarsal joint of right foot, subsequent encounter (principal); M19.071 Primary osteoarthritis, right ankle and foot; M60.9 Myositis, unspecified

== ENCOUNTER 2023-08-22 18:02 | Outpatient (CLI) | payer MEDICARE, MEDICAID | END 2023-08-22 18:03 | disposition critical access hospital (66) | LOC: EMS 18:02 | DX: R06.01 Orthopnea (principal); R53.83 Other fatigue; R09.89 Other specified symptoms and signs involving the circulatory and respiratory systems | CPT/HCPCS: A0425; A0429 ==

== ENCOUNTER 2023-08-22 18:30 | Inpatient (IN) | payer MEDICARE, MEDICAID ==
--- NOTE | 2023-08-22 18:40 | ED Physician Documentation ---
PD HPI DYSPNEA - Stated complaint Stated Complaint: WEAKNESS, SOA, CONGESTION - History obtained from History obtained from: Patient - Additional information Additional information: He has a history of COPD and has been more short of breath than usual for the last 4 days or so. There was a cough which seems to be better. He denies chest pain. There is some orthopnea. But when queried he says that is because he just feels like it is a chest cold that is worse when he is laying flat. He went to the clinic today noted to have a room air sat in the 80s, but he does wear oxygen at home. But because of that there was a concern for new onset heart failure which she does not really have a history of. That said he is on a diuretic. PD PAST MEDICAL HISTORY - Past Medical History Cardiovascular: Hypertension Respiratory: COPD Neuro: Peripheral neuropathy Endocrine/Autoimmune: None GI: None : None Psych: None Musculoskeletal: Chronic back pain Derm: Other (Chronic wound of his right leg, followed at [facility] once a week and is in a "cast") - Present Medications Home Medications: Ambulatory Orders Medication Instructions Recorded Confirmed Albuterol Sulfate [Albuterol 2 - 4 puffs IH RTQ4H PRN 03/01/20 03/15/23 Sulfate Hfa] hydroCHLOROthiazide 25 mg PO DAILY 03/01/20 03/15/23 [Hydrochlorothiazide] Methadone HCl 10 mg PO TID 05/31/21 03/15/23 Furosemide [Lasix] 20 mg PO DAILY 03/15/23 03/15/23 Albuterol Sulfate [Proair 2 puffs IH QID #1 each 03/17/23 Respiclick] Amox/Clav 875/125 [Augmentin 1 tablet PO Q12H 5 Days #10 tablet 03/17/23 875/125 Tab] Budesonide/Formoterol Fumarate 2 puffs IH BID #1 ea 03/17/23 [Symbicort 80-4.5 Mcg Inhaler] Montelukast [Singulair] 10 mg PO QPM #30 tablet 03/17/23 Nicotine 14 mg Patch [Nicoderm] 1 patch TOP DAILY #14 patch 03/17/23 guaiFENesin [Mucinex] 600 mg PO BID #10 tab 03/17/23 methylPREDNISolone [Medrol Dose 1 each PO .PACKAGEINSTRUCTIONS 6 03/17/23 Pack] Days #1 each - Allergies Allergies/Adverse Reactions: Allergies Allergy/AdvReac Type Severity Reaction Status Date / Time No Known Drug Allergies Allergy Verified 08/22/23 18:59 - Social History Does the pt smoke?: No Smoking Status: Current every day smoker Does the pt drink ETOH?: No Does the pt have substance abuse?: No - Immunizations Immunizations are current?: Yes - POLST Patient has POLST: No PD ED PE NORMAL - Vitals Vital signs reviewed: Yes - General General: Alert and oriented X 3, No acute distress - HEENT HEENT: PERRL, EOMI - Neck Neck: Supple, no meningeal sign, No bony TTP - Cardiac Cardiac: RRR, No murmur - Respiratory Respiratory: Other (Mild tachypnea, exp wheezes throughout, mild diminshed) - Abdomen Abdomen: Non tender - Back Back: No CVA TTP, No spinal TTP - Derm Derm: Normal color, Warm and dry - Extremities Extremities: No calf tenderness / cord, Other (Compression stockings on both legs. States pedal edema not worse than usual.) - Neuro Neuro: Alert and oriented X 3, Normal speech Results - Vitals Vitals: Vital Signs - 24 hr 08/22/23 08/22/23 08/22/23 18:47 18:55 19:10 Temperature 36.6 C Heart Rate 83 81 81 Respiratory 18 18 18 Rate Blood Pressure 135/81 H O2 Saturation 94 If not protocol 3 3 : Oxygen Flow, liters/minute 08/22/23 20:00 Temperature Heart Rate 96 Respiratory 20 Rate Blood Pressure O2 Saturation If not protocol 3 : Oxygen Flow, liters/minute Oxygen O2 Source Nasal cannula Oxygen Flow Rate 3 - Labs Labs: Laboratory Tests 08/22/23 08/22/23 08/22/23 18:45 18:45 18:45 WBC 8.3 RBC 3.83 L Hgb 12.4 L Hct 39.5 L MCV 103.1 H MCH 32.4 H MCHC 31.4 L RDW 13.2 Plt Count 194 MPV 9.2 Neut # (Auto) 5.3 Lymph # (Auto) 1.2 L Braxton # (Auto) 0.8 Eos # (Auto) 0.9 H Baso # (Auto) 0.1 Absolute Nucleated RBC 0.00 Nucleated RBC % 0.0 VBG pH 7.372 VBG pCO2 59.4 H VBG pO2 39.9 VBG HCO3 33.7 H VBG Total CO2 35.5 H VBG O2 Saturation 72.3 VBG Base Excess 6.6 H Sodium 139 Potassium 4.5 Chloride 99 L Carbon Dioxide 33 H Anion Gap 7.0 BUN 21 H Creatinine 1.0 Estimated GFR (MDRD) 74 L Glucose 96 Calcium 9.2 Magnesium 1.8 Total Bilirubin 0.3 AST 15 ALT 13 Alkaline Phosphatase 81 B-Natriuretic Peptide Total Protein 6.7 Albumin 4.1 Globulin 2.6 Albumin/Globulin Ratio 1.6 Nasal Adenovirus (PCR) Nasal B. parapertussis DNA (PCR) Nasal Coronavir 229E PCR Nasal Coronavir HKU1 PCR Nasal Coronavir NL63 PCR Nasal Coronavir OC43 PCR Nasal Enterovir/Rhinovir PCR Nasal Influenza B PCR Nasal Influenza A PCR Nasal Parainfluen 1 PCR Nasal Parainfluen 2 PCR Nasal Parainfluen 3 PCR Nasal Parainfluen 4 PCR Nasal RSV (PCR) Nasal B.pertussis DNA PCR Nasal C.pneumoniae (PCR) Jacek Human Metapneumo PCR Nasal M.pneumoniae (PCR) Nasal SARS-CoV-2 (PCR) 08/22/23 08/22/23 18:45 18:55 WBC RBC Hgb Hct MCV MCH MCHC RDW Plt Count MPV Neut # (Auto) Lymph # (Auto) Braxton # (Auto) Eos # (Auto) Baso # (Auto) Absolute Nucleated RBC Nucleated RBC % VBG pH VBG pCO2 VBG pO2 VBG HCO3 VBG Total CO2 VBG O2 Saturation VBG Base Excess Sodium Potassium Chloride Carbon Dioxide Anion Gap BUN Creatinine Estimated GFR (MDRD) Glucose Calcium Magnesium Total Bilirubin AST ALT Alkaline Phosphatase B-Natriuretic Peptide 21 Total Protein Albumin Globulin Albumin/Globulin Ratio Nasal Adenovirus (PCR) NOT DETECTED Nasal B. parapertussis DNA (PCR) NOT DETECTED Nasal Coronavir 229E PCR NOT DETECTED Nasal Coronavir HKU1 PCR NOT DETECTED Nasal Coronavir NL63 PCR NOT DETECTED Nasal Coronavir OC43 PCR NOT DETECTED Nasal Enterovir/Rhinovir PCR NOT DETECTED Nasal Influenza B PCR NOT DETECTED Nasal Influenza A PCR NOT DETECTED Nasal Parainfluen 1 PCR NOT DETECTED Nasal Parainfluen 2 PCR NOT DETECTED Nasal Parainfluen 3 PCR NOT DETECTED Nasal Parainfluen 4 PCR NOT DETECTED Nasal RSV (PCR) NOT DETECTED Nasal B.pertussis DNA PCR NOT DETECTED Nasal C.pneumoniae (PCR) NOT DETECTED Jacek Human Metapneumo PCR NOT DETECTED Nasal M.pneumoniae (PCR) NOT DETECTED Nasal SARS-CoV-2 (PCR) NOT DETECTED - Rads (name of study) Single view chest x-ray is unremarkable Relevant Findings:: Final report received, EMP independent interpretation of test PD Medical Decision Making - ED course ED course: 68-year-old gentleman with history of oxygen dependent COPD presents with apparent exacerbation of same due to a URI. Clinically there is no heart failure and this is corroborated by clear chest x-ray and no elevation in BNP. Otherwise his CBC shows modest chronic macrocytic anemia, and CO2 retention without significant acidemia consistent with probably chronic CO2 retention. In the emergency department he was treated initially with a DuoNeb and an albuterol as well as IV Solu-Medrol and this was followed by doxycycline and a third albuterol. He did improve minimally with this. set after the above treatments had the nurse to get him up and walking in the lobato on his 2 L nasal cannula and he could barely make it 30 feet and desatted to about 82 and hospitalist was called for admission at 8:[address] Nance for admission at 9:12 PM. He plans to observe as opposed to admit. I ordered a dose of his methadone as he was having breakthrough back pain and also his left foot was hurting a lot. His left foot was specifically examined and had good cap refill. He is chronically long toenails and asked that I trim his toenails. I did attempt to, but his toenails were too thick to really allow trimming with scissors. - Critical Care Time(min): 40 Time Includes: Direct patient care, Review records, Reassess patient, Document care, Coordinate care, Medical consult Data interpretation: Labs, Pulse ox Procedures excluded from critical care time: EKG Departure - Departure Disposition: ED Place in Observation Clinical Impression: COPD exacerbation Condition: Serious
[2023-08-22 18:49] LABS: BASOPHILS # (AUTO) 0.1 10^3/uL (0.0-0.1); BASOPHILS % (AUTO) 0.6 %; EOSINOPHILS # (AUTO) 0.9 10^3/uL (0.0-0.7); EOSINOPHILS % (AUTO) 10.8 %; HCT - HEMATOCRIT 39.5 % (42.0-52.0); HGB - HEMOGLOBIN 12.4 g/dL (14.0-18.0); LYMPHOCYTES # (AUTO) 1.2 10^3/uL (1.5-3.5); LYMPHOCYTES % (AUTO) 14.9 %; MEAN CORPUSCULAR HEMOGLOBIN 32.4 pg (27.0-31.0); MEAN CORPUSCULAR HGB CONC 31.4 g/dL (32.0-36.0); MEAN CORPUSCULAR VOLUME 103.1 fL (80.0-94.0); MEAN PLATELET VOLUME 9.2 fL (7.4-11.4); MONOCYTES # (AUTO) 0.8 10^3/uL (0.0-1.0); MONOCYTES % (AUTO) 9.4 %; NEUTROPHILS # (AUTO) 5.3 10^3/uL (1.5-6.6); NEUTROPHILS % (AUTO) 63.9 %; PLT - PLATELET COUNT 194 10^3/uL (130-450); RED BLOOD COUNT 3.83 10^6/uL (4.70-6.10); RED CELL DISTRIBUTION WIDTH 13.2 % (12.0-15.0); WHITE BLOOD COUNT 8.3 x10^3/uL (4.8-10.8)
[2023-08-22 18:50] LABS: VBG PCO2 59.4 mmHg (41-51); VBG PH 7.372 (7.31-7.41)
[2023-08-22] MEDS: methylPREDNISolone SUCCINATE 125 MG/2 ML VIAL IVP STA (18:50)
[2023-08-22 18:51] LABS: VBG BASE EXCESS 6.6 mmol/L (-2 - +2); VBG HCO3 33.7 mmol/L (23-28); VBG OXYGEN SATURATION 72.3 % (60-80); VBG PO2 39.9 mmHg (25-47); VBG TOTAL CO2 35.5 mmol/L (24-29)
[2023-08-22] MEDS: IPRATROPIUM/ALBUTEROL 3 ML NEB INH STA (18:55)
[2023-08-22 19:02] LABS: MAGNESIUM 1.8 mg/dL (1.7-2.3)
[2023-08-22 19:08] LABS: ALBUMIN 4.1 g/dL (3.2-5.5); ALBUMIN/GLOBULIN RATIO 1.6 (1.0-2.2); BILIRUBIN,TOTAL 0.3 mg/dL (0.2-1.0); CALCIUM 9.2 mg/dL (8.5-10.3); POTASSIUM 4.5 mmol/L (3.5-4.5); TOTAL PROTEIN 6.7 g/dL (6.4-8.9)
[2023-08-22] MEDS: ALBUTEROL NEB 2.5 MG/3 ML INH STA ×2 (19:11→20:00)
--- NOTE | 2023-08-22 19:12 | XRAY Report ---
PROCEDURE: Chest 1V INDICATIONS: cough TECHNIQUE: One view of the chest was acquired. COMPARISON: None. FINDINGS: Surgical changes and devices: None. Lungs and pleura: No pleural effusions or pneumothorax. Lungs are clear. Mediastinum: Mediastinal contours appear normal. Heart size is normal. Bones and chest wall: No suspicious bony lesions. Overlying soft tissues appear unremarkable. IMPRESSION: No acute cardiopulmonary process. Reviewed by: Aramis John MD on 08/22/2023 7:10 PM PST Approved by: Aramis John MD on 08/22/2023 7:10 PM PST Station ID: [id number]
[2023-08-22 19:49] LABS: CORONAVIRUS 229E-RESP PCR NOT DETECTED; CORONAVIRUS HKU1-RESP PCR NOT DETECTED; CORONAVIRUS NL63-RESP PCR NOT DETECTED; CORONAVIRUS OC43-RESP PCR NOT DETECTED; HUMAN METAPNEUMOVIRUS NOT DETECTED; SARS-CoV-2 -RESP PCR PANEL NOT DETECTED
[2023-08-22 19:50] LABS: B. PARAPERTUSSIS- RESP PCR PAN NOT DETECTED; B. PERTUSSIS- RESP PCR PANEL NOT DETECTED; C. PNEUMONIAE- RESP PCR PANEL NOT DETECTED; INFLUENZA A- RESP PCR PANEL NOT DETECTED; INFLUENZA B - RESP PCR PANEL NOT DETECTED; M. PNEUMONIAE- RESP PCR PANEL NOT DETECTED; PARAINFLUENZA VIRUS 1 NOT DETECTED; PARAINFLUENZA VIRUS 2 NOT DETECTED; PARAINFLUENZA VIRUS 3 NOT DETECTED; PARAINFLUENZA VIRUS 4 NOT DETECTED; RHINOVIRUS/ENTEROVIRUS NOT DETECTED; RSV- RESP PCR PANEL NOT DETECTED
[2023-08-22] MEDS: DOXYCYCLINE 100 MG TABLET PO STA (20:25)
[2023-08-22] MEDS ORDERED: ONDANSETRON 4 MG/2 ML VIAL IVP PRN (21:16)
[2023-08-22] MEDS ORDERED: PROCHLORPERAZINE 10 MG/2 ML VIAL IVP PRN (21:16)
--- NOTE | 2023-08-22 21:50 | HISTORY & PHYSICAL EXAMINATION ---
Chief Complaint - Chief Complaint Chief Complaint: SOB History of Present Illness - Admitted From Admitted From:: Home - History Obtained From Records Reviewed: Yes History obtained from: Patient and ER physiciam Exam Limitations: None - History of Present Illness HPI Comment/Other: He has a history of COPD and has been more short of breath than usual for the last 4 days or so. There was a cough which seems to be better. He denies chest pain. There is some orthopnea. But when queried he says that is because he just feels like it is a chest cold that is worse when he is laying flat. He went to the clinic today noted to have a room air sat in the 80s, but he does wear oxygen at home. But because of that there was a concern for new onset heart failure which she does not really have a history of. That said he is on a diuretic. Patient has never seen Pulmonary. He has chronic back pain for which he takes methadone He does have neuropathy and also continues to smoke and has cut down to 2-3 cig per day He lives home alone, BNP is normal, CXR is clear, was able to wa;l ;ess than 30 feet before he got verr sob, He is on home oxygen He denies any chest pain no sob no other active complaints History - Past Medical History Cardiovascular: reports: Hypertension Respiratory: reports: COPD Neuro: reports: Peripheral neuropathy Endocrine/Autoimmune: reports: None GI: reports: None : reports: None Psych: reports: None Musculoskeletal: reports: Chronic back pain Derm: reports: Other (Chronic wound of his right leg, followed at [facility] once a week and is in a "cast") MRSA Hx?: Yes - Family & Social History Living Situation: Alone Social History Notes: He smokes cigarettes daily, he drinks 3 beers a daily - POLST Patient has POLST: No Meds/Allgy - Home Medications Home Medications: Ambulatory Orders Medication Instructions Recorded Confirmed Albuterol Sulfate [Albuterol 2 - 4 puffs IH RTQ4H PRN 03/01/20 03/15/23 Sulfate Hfa] hydroCHLOROthiazide 25 mg PO DAILY 03/01/20 03/15/23 [Hydrochlorothiazide] Methadone HCl 10 mg PO TID 05/31/21 03/15/23 Furosemide [Lasix] 20 mg PO DAILY 03/15/23 03/15/23 Albuterol Sulfate [Proair 2 puffs IH QID #1 each 03/17/23 Respiclick] Amox/Clav 875/125 [Augmentin 1 tablet PO Q12H 5 Days #10 tablet 03/17/23 875/125 Tab] Budesonide/Formoterol Fumarate 2 puffs IH BID #1 ea 03/17/23 [Symbicort 80-4.5 Mcg Inhaler] Montelukast [Singulair] 10 mg PO QPM #30 tablet 03/17/23 Nicotine 14 mg Patch [Nicoderm] 1 patch TOP DAILY #14 patch 03/17/23 guaiFENesin [Mucinex] 600 mg PO BID #10 tab 03/17/23 methylPREDNISolone [Medrol Dose 1 each PO .PACKAGEINSTRUCTIONS 6 03/17/23 Pack] Days #1 each - Allergies Allergies/Adverse Reactions: Allergies Allergy/AdvReac Type Severity Reaction Status Date / Time No Known Drug Allergies Allergy Verified 08/22/23 18:59 Review of Systems - Respiratory Respiratory: reports: Wheezing, SOB at rest, SOB with exertion - Neurological Neurological: reports: General weakness Exam - Vital Signs Vital Signs: Vital Signs x48h Temp Pulse Resp BP Pulse Ox O2 Flow Rate 08/22/23 20:00 96 20 3 08/22/23 19:10 81 18 3 08/22/23 18:55 81 18 3 08/22/23 18:47 36.6 C 83 18 135/81 H 94 - Physical Exam General Appearance: positive: No acute distress, Alert Eyes Bilateral: positive: Normal inspection, PERRL Neck: positive: Nml inspection, Thyroid nml Respiratory: positive: Wheezes, Rhonchi Cardiovascular: positive: Regular rate & rhythm Abdomen: positive: Non-tender, No organomegaly Back: positive: Nml inspection Skin: positive: Color nml, No rash Extremities: positive: Non-tender, Full ROM Neurologic/Psychiatric: positive: Oriented x3, CN's nml (2-12) Sepsis Event Note (H) - Evaluation Current Stage of Sepsis: Ruled out Conclusion/Plan - Problem List (1) COPD exacerbation Conclusion/Plan: admit for observation Duonebs IV mag Empiric abx IV steroids (2) Alcohol use Conclusion/Plan: Monitor for any withdrawls Can give folate and vit b12 (3) Dependence on nicotine from cigarettes Conclusion/Plan: smoking cessation discussed and patinet states he is trying hard to cut down Patient also has mildly elevated CO2 likely chornic Qualifiers: Substance use status: uncomplicated - Lab Results Fish Bones: 08/22/23 18:45 08/22/23 18:45
[2023-08-22] MEDS: MAGNESIUM SULFATE 2 GRAM 2 GM/50 ML BAG IV ONE (22:47)
[2023-08-22] MEDS: AZITHROMYCIN INJ 500 MG in SODIUM CHLORIDE 0.9% 250 ML IV SCH (22:48)
[2023-08-22] MEDS: methylPREDNISolone SUCCINATE 40 MG/ML VIAL IVP SCH (22:48)
[2023-08-22] MEDS: METHADONE 5 MG TABLET PO STA ×2 (22:49→22:52)
[2023-08-22] MEDS: oxyCODONE 5 MG TABLET PO STA ×2 (22:50→22:53)
[2023-08-22] MEDS: ACETAMINOPHEN/CODEINE 300 MG/30 MG TABLET PO STA ×2 (22:51→22:52)
[2023-08-22] MEDS: SODIUM CHLORIDE 0.9% 1,000 ML IV SCH (22:51)
[2023-08-23] MEDS: IPRATROPIUM/ALBUTEROL 3 ML NEB INH SCH ×2 (00:54→10:17)
[2023-08-23] MEDS: SODIUM CHLORIDE FLUSH 0.9% 10 ML SYRINGE IVP SCH (01:35)
[2023-08-23] MEDS: METHADONE 5 MG TABLET PO SCH (06:01)
[2023-08-23] MEDS: SODIUM CHLORIDE 0.9% 1,000 ML IV SCH (10:00)
[2023-08-23] MEDS: BUDESONIDE 0.5 MG/2 ML NEB INH SCH (10:18)
[2023-08-23] MEDS: cefTRIAXone 1 GM in SODIUM CHLORIDE 0.9% MINIBAG 100 ML IV SCH (10:30)
[2023-08-23] MEDS: CYANOCOBALAMIN 500 MCG TABLET PO SCH (10:36)
[2023-08-23] MEDS: FOLIC ACID 1 MG TABLET PO SCH (10:37)
[2023-08-23] MEDS: NICOTINE 14 MG PATCH TOP SCH (10:37)
[2023-08-23] MEDS: THIAMINE 100 MG TABLET PO SCH (10:42)
[2023-08-23] MEDS: BEER 355 ML BOTTLE PO SCH (13:25)
--- NOTE | 2023-08-23 15:02 | PHARMACY PROGRESS NOTE ---
- Best Possible Medication History Admit Date and Time: 08/22/232117 Processed by: Pharmacy Medication History completed: Yes Patient Interview: Completed Secondary Source(s): Insurance records As the person ultimately responsible for medication therapy, providers are able to order a medication from an existing home medication list in [facility] via the "Reconcile Routine" prior to Confirmation of that medication by office support specialist. Such practice is discouraged except when the physician, in their clinical judgment, deems that a medical need exists for a medication without regard to previous use.
--- NOTE | 2023-08-23 17:21 | PROVIDER PROGRESS NOTE ---
Assessment/Plan - Problem List (1) Acute and chronic respiratory failure with hypoxia Assessment/Plan: He is on home O2 but was desaturating even on his usual level of supplemental O2 Plan: Continue with supplemental O2, target saturation 88% and above Taper down when possible Treat due to underlying COPD exacerbation and possible CHF (2) COPD exacerbation Conclusion/Plan: He is still wheezing in all 4 lung romero with rhonchi diffusely Plan: Admit to Inpatient status from Observation Cont Duonebs, nebulized steroids, IV steroids, Montelukast and empiric abx Continue Mucinex to help with expectoration (3) Leg edema Conclusion/Plan: Possibly he has cor pulmonale. But his BNP came back normal at 21. Likely he has venous insufficiency then Plan: He uses Lasix at home, I will give Lasix IV while here Follow I's and O's and daily weights, BMP and mag and replace if low (4) Alcohol use Conclusion/Plan: Patient requested 1 beer with lunch and 1 beer with dinner Plan: CIWA protocol ordered with as needed Ativan Give daily thiamine I will honor his request for beer, 1 with lunch and 1 with dinner (5) Dependence on nicotine from cigarettes Conclusion/Plan: Patient has mildly elevated CO2 likely chronic Smoking cessation discussed and patient states he is trying hard to cut down Plan: Cont Nicotine patch (6) Broken toe He has a crushed great toe. He is waiting for a boot Plan: Give pain meds as needed - Current Meds Current Meds: Current Medications Generic Name Dose Route Start Last Admin Trade Name Santosq PRN Reason Stop Dose Admin Albuterol/Ipratropium 3 ml 08/23/23 11:00 08/23/23 14:55 Ipratropium/Albuterol 3 Ml Neb INH 3 ml RTQID SILVESTRE Administration Beer 355 ml 08/23/23 12:00 08/23/23 13:25 Beer 355 Ml Bottle PO 355 ml 1200,1700 SILVESTRE Administration Budesonide 0.5 mg 08/23/23 09:00 08/23/23 10:18 Budesonide 0.5 Mg/2 Ml Neb INH Not Given RTBID SILVESTRE Cyanocobalamin 500 mcg 08/23/23 09:00 08/23/23 10:36 Cyanocobalamin 500 Mcg Tablet PO 500 mcg DAILY SILVESTRE Administration Folic Acid 1 mg 08/23/23 09:00 08/23/23 10:37 Folic Acid 1 Mg Tablet PO 1 mg DAILY SILVESTRE Administration Ceftriaxone Sodium 1 gm/ 100 mls @ 200 mls/hr 08/23/23 09:00 08/23/23 11:00 Sodium Chloride IV Infused DAILY SILVESTRE Infusion Azithromycin 500 mg/ Sodium 250 mls @ 250 mls/hr 08/22/23 22:00 08/23/23 01:06 Chloride IV Infused Q24H SILVESTRE Infusion Methadone HCl 10 mg 08/23/23 06:00 08/23/23 13:25 Methadone 5 Mg Tablet PO 10 mg TID SILVESTRE Administration Methylprednisolone 80 mg 08/22/23 22:00 08/23/23 13:26 Methylprednisolone Succinate 40 Mg/Ml Vial IVP 80 mg Q8HR SILVESTRE Administration Nicotine 1 patch 08/23/23 09:00 08/23/23 10:37 Nicotine 14 Mg Patch TOP 1 patch DAILY SILVESTRE Administration Sodium Chloride 10 ml 08/23/23 01:00 08/23/23 10:39 Sodium Chloride Flush 0.9% 10 Ml Syringe IVP Not Given 0100,0900,1700 SILVESTRE Thiamine HCl 100 mg 08/23/23 11:00 08/23/23 10:42 Thiamine 100 Mg Tablet PO 100 mg DAILY SILVESTRE Administration - Lab Result Fish Bone Diagrams: 08/22/23 18:45 08/22/23 18:45 - Additional Planning My Orders: My Active Orders 08/23/23 08:37 Resp Teach Nebulizer/MDI [RC] .ONCE 08/23/23 09:00 Budesonide [Pulmicort] 0.5 mg INH RTBID 08/23/23 11:00 Ipratropium/Albuterol [Duoneb] 3 ml INH RTQID Thiamine [Vitamin B-1] 100 mg PO DAILY 08/23/23 12:00 Beer 355 ml PO 1200,1700 08/23/23 17:12 Admit [Admit \ Transfer \ Status] [RC] .ONCE 08/23/23 17:15 FUROSEMIDE INJ 20mg VIAL [LASIX INJ 20mg VIAL] 20 mg IVP ONCE STA guaiFENesin [Mucinex] 600 mg PO Q6H PRN 08/24/23 Breakfast DIET [Low Sodium Diet] [DIET] 08/24/23 06:00 FUROSEMIDE INJ 20mg VIAL [LASIX INJ 20mg VIAL] 20 mg IVP BIDDIURETIC Subjective - Subjective Patient Reports: Cough (Green spt and very productive.), Shortness of Breath Objective Vital Signs: Vital Signs - 24 hr 08/22/23 08/22/23 08/22/23 18:47 18:55 19:10 Temperature 36.6 C Heart Rate 83 81 81 Heart Rate [ Monitoring electrodes] Respiratory 18 18 18 Rate Blood Pressure 135/81 H Blood Pressure [Left Brachial artery] Blood Pressure [Right Brachial artery] O2 Saturation 94 If not protocol 3 3 : Oxygen Flow, liters/minute 08/22/23 08/22/23 08/22/23 19:20 20:00 20:30 Temperature 36.6 C Heart Rate 89 96 92 Heart Rate [ Monitoring electrodes] Respiratory 19 20 25 H Rate Blood Pressure 143/69 H 129/73 Blood Pressure [Left Brachial artery] Blood Pressure [Right Brachial artery] O2 Saturation 95 92 If not protocol 2 3 2 : Oxygen Flow, liters/minute 08/22/23 08/23/23 08/23/23 23:00 00:22 00:23 Temperature 37.1 C Heart Rate 93 Heart Rate [ 96 Monitoring electrodes] Respiratory 21 20 Rate Blood Pressure 139/94 H Blood Pressure 150/81 H [Left Brachial artery] Blood Pressure [Right Brachial artery] O2 Saturation 92 93 If not protocol 2 1 : Oxygen Flow, liters/minute 08/23/23 08/23/23 08/23/23 00:55 06:00 07:14 Temperature 36.6 C 36.8 C Heart Rate 96 89 Heart Rate [ 85 85 Monitoring electrodes] Respiratory 20 24 20 Rate Blood Pressure Blood Pressure [Left Brachial artery] Blood Pressure 156/82 H 141/71 H [Right Brachial artery] O2 Saturation 96 92 If not protocol 3 3 2 : Oxygen Flow, liters/minute 08/23/23 15:04 Temperature 37.2 C Heart Rate Heart Rate [ 91 Monitoring electrodes] Respiratory 18 Rate Blood Pressure Blood Pressure [Left Brachial artery] Blood Pressure 166/78 H [Right Brachial artery] O2 Saturation 94 If not protocol 2 : Oxygen Flow, liters/minute Oxygen O2 Source Nasal cannula Oxygen Flow Rate 2 I&O (Last 24 Hrs): Intake and Output Totals x24h 08/21/23 08/22/23 08/23/23 23:59 23:59 23:59 Intake Total 1520 Output Total 2465 Balance -945 General: Alert, Oriented x3, Mild distress (from SOB just moving in bed) HEENT: Mucous membr. moist/pink, Other (Disheveled, greasy face, wearing O2 via nasal cannula) Neck: Supple Neuro: Alert, Non Focal Cardiovascular: Regular rate (Very distant heart sounds due to COPD) Respiratory: Wheezes (, wheezing and rhonchi), Rhonchi Abdomen: Soft, No tenderness, Other (Obese) Extremities: Other (2+ eema to above knees) - Results Results: Laboratory Results WBC 8.3 x10^3/uL (4.8-10.8) 08/22/23 18:45 RBC 3.83 10^6/uL (4.70-6.10) L 08/22/23 18:45 Hgb 12.4 g/dL (14.0-18.0) L 08/22/23 18:45 Hct 39.5 % (42.0-52.0) L 08/22/23 18:45 MCV 103.1 fL (80.0-94.0) H 08/22/23 18:45 MCH 32.4 pg (27.0-31.0) H 08/22/23 18:45 MCHC 31.4 g/dL (32.0-36.0) L 08/22/23 18:45 RDW 13.2 % (12.0-15.0) 08/22/23 18:45 Plt Count 194 10^3/uL (130-450) 08/22/23 18:45 MPV 9.2 fL (7.4-11.4) 08/22/23 18:45 Neut # (Auto) 5.3 10^3/uL (1.5-6.6) 08/22/23 18:45 Lymph # (Auto) 1.2 10^3/uL (1.5-3.5) L 08/22/23 18:45 Glenn # (Auto) 0.8 10^3/uL (0.0-1.0) 08/22/23 18:45 Eos # (Auto) 0.9 10^3/uL (0.0-0.7) H 08/22/23 18:45 Baso # (Auto) 0.1 10^3/uL (0.0-0.1) 08/22/23 18:45 Absolute Nucleated RBC 0.00 x10^3/uL 08/22/23 18:45 Nucleated RBC % 0.0 /100WBC 08/22/23 18:45 VBG pH 7.372 (7.31-7.41) 08/22/23 18:45 VBG pCO2 59.4 mmHg (41-51) H 08/22/23 18:45 VBG pO2 39.9 mmHg (25-47) 08/22/23 18:45 VBG HCO3 33.7 mmol/L (23-28) H 08/22/23 18:45 VBG Total CO2 35.5 mmol/L (24-29) H 08/22/23 18:45 VBG O2 Saturation 72.3 % (60-80) 08/22/23 18:45 VBG Base Excess 6.6 mmol/L (-2 - +2) H 08/22/23 18:45 Sodium 139 mmol/L (135-145) 08/22/23 18:45 Potassium 4.5 mmol/L (3.5-4.5) 08/22/23 18:45 Chloride 99 mmol/L (101-111) L 08/22/23 18:45 Carbon Dioxide 33 mmol/L (21-32) H 08/22/23 18:45 Anion Gap 7.0 (6-13) 08/22/23 18:45 BUN 21 mg/dL (6-20) H 08/22/23 18:45 Creatinine 1.0 mg/dL (0.6-1.3) 08/22/23 18:45 Estimated GFR (MDRD) 74 (>89) L 08/22/23 18:45 Glucose 96 mg/dL (74-104) 08/22/23 18:45 Calcium 9.2 mg/dL (8.5-10.3) 08/22/23 18:45 Magnesium 1.8 mg/dL (1.7-2.3) 08/22/23 18:45 Total Bilirubin 0.3 mg/dL (0.2-1.0) 08/22/23 18:45 AST 15 IU/L (10-42) 08/22/23 18:45 ALT 13 IU/L (10-60) 08/22/23 18:45 Alkaline Phosphatase 81 IU/L (42-121) 08/22/23 18:45 B-Natriuretic Peptide 21 pg/mL (5-100) 08/22/23 18:45 Total Protein 6.7 g/dL (6.4-8.9) 08/22/23 18:45 Albumin 4.1 g/dL (3.2-5.5) 08/22/23 18:45 Globulin 2.6 g/dL (2.1-4.2) 08/22/23 18:45 Albumin/Globulin Ratio 1.6 (1.0-2.2) 08/22/23 18:45 Nasal Adenovirus (PCR) NOT DETECTED 08/22/23 18:55 Nasal B. parapertussis DNA (PCR) NOT DETECTED 08/22/23 18:55 Nasal Coronavir 229E PCR NOT DETECTED 08/22/23 18:55 Nasal Coronavir HKU1 PCR NOT DETECTED 08/22/23 18:55 Nasal Coronavir NL63 PCR NOT DETECTED 08/22/23 18:55 Nasal Coronavir OC43 PCR NOT DETECTED 08/22/23 18:55 Nasal Enterovir/Rhinovir PCR NOT DETECTED 08/22/23 18:55 Nasal Influenza B PCR NOT DETECTED 08/22/23 18:55 Nasal Influenza A PCR NOT DETECTED 08/22/23 18:55 Nasal Parainfluen 1 PCR NOT DETECTED 08/22/23 18:55 Nasal Parainfluen 2 PCR NOT DETECTED 08/22/23 18:55 Nasal Parainfluen 3 PCR NOT DETECTED 08/22/23 18:55 Nasal Parainfluen 4 PCR NOT DETECTED 08/22/23 18:55 Nasal RSV (PCR) NOT DETECTED 08/22/23 18:55 Nasal Screen MRSA (PCR) NEGATIVE (NEGATIVE) 08/23/23 01:30 Nasal B.pertussis DNA PCR NOT DETECTED 08/22/23 18:55 Nasal C.pneumoniae (PCR) NOT DETECTED 08/22/23 18:55 Jacek Human Metapneumo PCR NOT DETECTED 08/22/23 18:55 Nasal M.pneumoniae (PCR) NOT DETECTED 08/22/23 18:55 Nasal SARS-CoV-2 (PCR) NOT DETECTED 08/22/23 18:55 Sepsis Event Note (H) - Evaluation Current Stage of Sepsis: Ruled out
[2023-08-23] MEDS: FUROSEMIDE 20 MG/2 ML VIAL IVP STA (17:57)
[2023-08-23] MEDS: SODIUM CHLORIDE FLUSH 0.9% 10 ML SYRINGE IVP PRN (19:01)
[2023-08-23] MEDS: guaiFENesin 600 MG TABLET PO PRN (21:40)
[2023-08-23] MEDS: MONTELUKAST 10 MG TABLET PO SCH (21:41)
[2023-08-24] MEDS: IPRATROPIUM/ALBUTEROL 3 ML NEB INH PRN (02:09)
[2023-08-24] MEDS: FUROSEMIDE 20 MG/2 ML VIAL IVP SCH (06:34)
[2023-08-24] MEDS: HYDROcod/ACETAM 5/325 MG TABLET PO PRN (07:55)
[2023-08-24] MEDS: ACETAMINOPHEN 325 MG TABLET PO PRN (07:55)
[2023-08-24] MEDS: lisinopriL 5 MG TABLET PO SCH (08:56)
[2023-08-24] MEDS ORDERED: ZOLPIDEM 5 MG TABLET PO PRN (15:12)
--- NOTE | 2023-08-24 19:25 | PROVIDER PROGRESS NOTE ---
Assessment/Plan - Problem List (1) Acute and chronic respiratory failure with hypoxia Assessment/Plan: He is on home O2 but was desaturating even on his usual level of supplemental O2 Plan: Continue with supplemental O2, target saturation 88% and above Taper down as tolerated Treat the underlying COPD exacerbation and possible CHF (2) COPD exacerbation Conclusion/Plan: He is still scattered wheezing but less rhonchi Plan: Cont Duonebs, nebulized steroids, IV steroids, Montelukast and empiric abx Continue Mucinex to help with expectoration (3) Leg edema Conclusion/Plan: Possibly he has cor pulmonale. But his BNP came back normal at 21. Likely he has venous insufficiency then Plan: He uses Lasix at home, I will give Lasix IV while here for faster diuresis Follow I's and O's and daily weights, BMP and mag and replace if low (4) Alcohol use Conclusion/Plan: Patient requested 1 beer with lunch and 1 beer with dinner Plan: CIWA protocol ordered with as needed Ativan Give daily thiamine I honored his request for beer, 1 with lunch and 1 with dinner (5) Dependence on nicotine from cigarettes Conclusion/Plan: Patient has mildly elevated CO2 likely chronic Smoking cessation discussed and patient states he is trying hard to cut down Plan: Cont Nicotine patch (6) Broken toe He has a crushed great toe. He is waiting for a boot Plan: Give pain meds as needed - Current Meds Current Meds: Current Medications Generic Name Dose Route Start Last Admin Trade Name Freq PRN Reason Stop Dose Admin Acetaminophen 650 mg 08/22/23 21:16 08/24/23 07:55 Acetaminophen 325 Mg Tablet PO 650 mg Q4HR PRN Administration Pain 1 to 4, or Fever Hydrocodone Bitart/Acetaminophen 1 tab 08/22/23 21:16 08/24/23 07:55 Hydrocod/Acetam 5/325 Mg Tablet PO 1 tab Q4HR PRN Administration Pain 5 to 7 Albuterol/Ipratropium 3 ml 08/22/23 21:16 08/24/23 02:09 Ipratropium/Albuterol 3 Ml Neb INH 3 ml RTQ4H PRN Administration Wheezing Albuterol/Ipratropium 3 ml 08/23/23 11:00 08/24/23 18:01 Ipratropium/Albuterol 3 Ml Neb INH 3 ml RTQID SILVESTRE Administration Beer 355 ml 08/23/23 12:00 08/24/23 16:21 Beer 355 Ml Bottle PO 355 ml 1200,1700 SILVESTRE Administration Budesonide 0.5 mg 08/23/23 09:00 08/24/23 18:01 Budesonide 0.5 Mg/2 Ml Neb INH 0.5 mg RTBID SILVESTRE Administration Cyanocobalamin 500 mcg 08/23/23 09:00 08/24/23 08:46 Cyanocobalamin 500 Mcg Tablet PO 500 mcg DAILY SILVESTRE Administration Folic Acid 1 mg 08/23/23 09:00 08/24/23 08:46 Folic Acid 1 Mg Tablet PO 1 mg DAILY SILVESTRE Administration Furosemide 20 mg 08/24/23 06:00 08/24/23 14:07 Furosemide 20 Mg/2 Ml Vial IVP 20 mg BIDDIURETIC SILVESTRE Administration Guaifenesin 600 mg 08/23/23 17:15 08/23/23 21:40 Guaifenesin 600 Mg Tablet PO 600 mg Q6H PRN Administration Cough Ceftriaxone Sodium 1 gm/ 100 mls @ 200 mls/hr 08/23/23 09:00 08/24/23 09:32 Sodium Chloride IV Infused DAILY SILVESTRE Infusion Azithromycin 500 mg/ Sodium 250 mls @ 250 mls/hr 08/22/23 22:00 08/23/23 23:09 Chloride IV Infused Q24H SILVESTRE Infusion Lisinopril 10 mg 08/24/23 09:00 08/24/23 08:56 Lisinopril 5 Mg Tablet PO 10 mg DAILY SILVESTRE Administration Methadone HCl 10 mg 08/23/23 06:00 08/24/23 14:07 Methadone 5 Mg Tablet PO 10 mg TID SILVESTRE Administration Methylprednisolone 80 mg 08/22/23 22:00 08/24/23 14:07 Methylprednisolone Succinate 40 Mg/Ml Vial IVP 80 mg Q8HR SILVESTRE Administration Montelukast Sodium 10 mg 08/23/23 21:00 08/23/23 21:41 Montelukast 10 Mg Tablet PO 10 mg QPM SILVESTRE Administration Nicotine 1 patch 08/23/23 09:00 08/24/23 08:46 Nicotine 14 Mg Patch TOP 1 patch DAILY SILVESTRE Administration Sodium Chloride 10 ml 08/22/23 21:16 08/23/23 21:41 Sodium Chloride Flush 0.9% 10 Ml Syringe IVP 10 ml PRN PRN Administration NEEDED PER PROVIDER ORDERS Sodium Chloride 10 ml 08/23/23 01:00 08/24/23 16:09 Sodium Chloride Flush 0.9% 10 Ml Syringe IVP 10 ml 0100,0900,1700 SILVESTRE Administration Thiamine HCl 100 mg 08/23/23 11:00 08/24/23 08:46 Thiamine 100 Mg Tablet PO 100 mg DAILY SILVESTRE Administration - Lab Result Fish Bone Diagrams: 08/25/23 05:13 08/25/23 05:13 - Additional Planning My Orders: My Active Orders 08/24/23 Breakfast DIET [Low Sodium Diet] [DIET] 08/24/23 06:00 FUROSEMIDE INJ 20mg VIAL [LASIX INJ 20mg VIAL] 20 mg IVP BIDDIURETIC 08/24/23 09:00 lisinopriL [Zestril] 10 mg PO DAILY 08/24/23 15:12 Zolpidem [Ambien] 5 mg PO QPM PRN 08/25/23 05:00 CALCIUM [CHEM] DAILYLAB CBC - COMP BLD CT W/AUTO DIFF [HEME] DAILYLAB COMPREHENSIVE METABOLIC PANEL [CHEM] DAILYLAB MAGNESIUM [CHEM] DAILYLAB PHOSPHORUS [CHEM] DAILYLAB Subjective - Subjective Patient Reports: Cough, Shortness of Breath (He is still extremely short of breath with any minimal activity. The cough is now productive and he can expectorate) Objective Vital Signs: Vital Signs - 24 hr 08/24/23 08/24/23 08/24/23 00:00 02:10 05:51 Temperature 36.7 C Heart Rate 82 76 Heart Rate [ 85 Monitoring electrodes] Respiratory 18 18 18 Rate Blood Pressure 131/75 H [Right Brachial artery] O2 Saturation 92 If not protocol 2 2 2 : Oxygen Flow, liters/minute 08/24/23 08/24/23 08/24/23 07:43 11:52 15:15 Temperature 37.1 C Heart Rate 79 79 Heart Rate [ 81 Monitoring electrodes] Respiratory 15 18 18 Rate Blood Pressure 134/74 H [Right Brachial artery] O2 Saturation 91 L If not protocol 2 1.5 2 : Oxygen Flow, liters/minute 08/24/23 08/24/23 15:58 18:03 Temperature 36.7 C Heart Rate 79 Heart Rate [ 87 Monitoring electrodes] Respiratory 16 16 Rate Blood Pressure 132/71 H [Right Brachial artery] O2 Saturation 92 If not protocol 2 2 : Oxygen Flow, liters/minute Oxygen O2 Source Nasal cannula Oxygen Flow Rate 2 I&O (Last 24 Hrs): Intake and Output Totals x24h 08/22/23 08/23/23 08/24/23 23:59 23:59 23:59 Intake Total 2610 2862 Output Total 4115 2150 Balance -1505 712 General: Alert, Oriented x3 HEENT: EOMI, Mucous membr. moist/pink, Other (Wearing O2 via nasal cannula) Neck: Supple Neuro: Alert, Other (Sensory neuropathy of feet) Cardiovascular: Regular rate, No murmurs (Distant heart sounds due to wheezes and COPD) Respiratory: Wheezes, Rhonchi Abdomen: Normal bowel sounds, Soft, No tenderness, Other (Obese) Extremities: Other (1+ edema of feet and ankles) - Results Results: Laboratory Results WBC 8.3 x10^3/uL (4.8-10.8) 08/22/23 18:45 RBC 3.83 10^6/uL (4.70-6.10) L 08/22/23 18:45 Hgb 12.4 g/dL (14.0-18.0) L 08/22/23 18:45 Hct 39.5 % (42.0-52.0) L 08/22/23 18:45 MCV 103.1 fL (80.0-94.0) H 08/22/23 18:45 MCH 32.4 pg (27.0-31.0) H 08/22/23 18:45 MCHC 31.4 g/dL (32.0-36.0) L 08/22/23 18:45 RDW 13.2 % (12.0-15.0) 08/22/23 18:45 Plt Count 194 10^3/uL (130-450) 08/22/23 18:45 MPV 9.2 fL (7.4-11.4) 08/22/23 18:45 Neut # (Auto) 5.3 10^3/uL (1.5-6.6) 08/22/23 18:45 Lymph # (Auto) 1.2 10^3/uL (1.5-3.5) L 08/22/23 18:45 Humphreys # (Auto) 0.8 10^3/uL (0.0-1.0) 08/22/23 18:45 Eos # (Auto) 0.9 10^3/uL (0.0-0.7) H 08/22/23 18:45 Baso # (Auto) 0.1 10^3/uL (0.0-0.1) 08/22/23 18:45 Absolute Nucleated RBC 0.00 x10^3/uL 08/22/23 18:45 Nucleated RBC % 0.0 /100WBC 08/22/23 18:45 VBG pH 7.372 (7.31-7.41) 08/22/23 18:45 VBG pCO2 59.4 mmHg (41-51) H 08/22/23 18:45 VBG pO2 39.9 mmHg (25-47) 08/22/23 18:45 VBG HCO3 33.7 mmol/L (23-28) H 08/22/23 18:45 VBG Total CO2 35.5 mmol/L (24-29) H 08/22/23 18:45 VBG O2 Saturation 72.3 % (60-80) 08/22/23 18:45 VBG Base Excess 6.6 mmol/L (-2 - +2) H 08/22/23 18:45 Sodium 139 mmol/L (135-145) 08/22/23 18:45 Potassium 4.5 mmol/L (3.5-4.5) 08/22/23 18:45 Chloride 99 mmol/L (101-111) L 08/22/23 18:45 Carbon Dioxide 33 mmol/L (21-32) H 08/22/23 18:45 Anion Gap 7.0 (6-13) 08/22/23 18:45 BUN 21 mg/dL (6-20) H 08/22/23 18:45 Creatinine 1.0 mg/dL (0.6-1.3) 08/22/23 18:45 Estimated GFR (MDRD) 74 (>89) L 08/22/23 18:45 Glucose 96 mg/dL (74-104) 08/22/23 18:45 Calcium 9.2 mg/dL (8.5-10.3) 08/22/23 18:45 Magnesium 1.8 mg/dL (1.7-2.3) 08/22/23 18:45 Total Bilirubin 0.3 mg/dL (0.2-1.0) 08/22/23 18:45 AST 15 IU/L (10-42) 08/22/23 18:45 ALT 13 IU/L (10-60) 08/22/23 18:45 Alkaline Phosphatase 81 IU/L (42-121) 08/22/23 18:45 B-Natriuretic Peptide 21 pg/mL (5-100) 08/22/23 18:45 Total Protein 6.7 g/dL (6.4-8.9) 08/22/23 18:45 Albumin 4.1 g/dL (3.2-5.5) 08/22/23 18:45 Globulin 2.6 g/dL (2.1-4.2) 08/22/23 18:45 Albumin/Globulin Ratio 1.6 (1.0-2.2) 08/22/23 18:45 Nasal Adenovirus (PCR) NOT DETECTED 08/22/23 18:55 Nasal B. parapertussis DNA (PCR) NOT DETECTED 08/22/23 18:55 Nasal Coronavir 229E PCR NOT DETECTED 08/22/23 18:55 Nasal Coronavir HKU1 PCR NOT DETECTED 08/22/23 18:55 Nasal Coronavir NL63 PCR NOT DETECTED 08/22/23 18:55 Nasal Coronavir OC43 PCR NOT DETECTED 08/22/23 18:55 Nasal Enterovir/Rhinovir PCR NOT DETECTED 08/22/23 18:55 Nasal Influenza B PCR NOT DETECTED 08/22/23 18:55 Nasal Influenza A PCR NOT DETECTED 08/22/23 18:55 Nasal Parainfluen 1 PCR NOT DETECTED 08/22/23 18:55 Nasal Parainfluen 2 PCR NOT DETECTED 08/22/23 18:55 Nasal Parainfluen 3 PCR NOT DETECTED 08/22/23 18:55 Nasal Parainfluen 4 PCR NOT DETECTED 08/22/23 18:55 Nasal RSV (PCR) NOT DETECTED 08/22/23 18:55 Nasal Screen MRSA (PCR) NEGATIVE (NEGATIVE) 08/23/23 01:30 Nasal B.pertussis DNA PCR NOT DETECTED 08/22/23 18:55 Nasal C.pneumoniae (PCR) NOT DETECTED 08/22/23 18:55 Jacek Human Metapneumo PCR NOT DETECTED 08/22/23 18:55 Nasal M.pneumoniae (PCR) NOT DETECTED 08/22/23 18:55 Nasal SARS-CoV-2 (PCR) NOT DETECTED 08/22/23 18:55 Sepsis Event Note (H) - Evaluation Current Stage of Sepsis: Ruled out
[2023-08-25 05:20] LABS: BASOPHILS % (AUTO) 0.1 %; HCT - HEMATOCRIT 37.8 % (42.0-52.0); HGB - HEMOGLOBIN 12.2 g/dL (14.0-18.0); LYMPHOCYTES # (AUTO) 0.5 10^3/uL (1.5-3.5); MEAN CORPUSCULAR HEMOGLOBIN 32.3 pg (27.0-31.0); MEAN CORPUSCULAR HGB CONC 32.3 g/dL (32.0-36.0); MEAN PLATELET VOLUME 9.5 fL (7.4-11.4); MONOCYTES # (AUTO) 0.4 10^3/uL (0.0-1.0); MONOCYTES % (AUTO) 3.2 %; PLT - PLATELET COUNT 215 10^3/uL (130-450); RED BLOOD COUNT 3.78 10^6/uL (4.70-6.10); RED CELL DISTRIBUTION WIDTH 13.3 % (12.0-15.0)
[2023-08-25 05:33] LABS: ALBUMIN 3.8 g/dL (3.2-5.5); ALBUMIN/GLOBULIN RATIO 1.6 (1.0-2.2); BILIRUBIN,TOTAL 0.4 mg/dL (0.2-1.0); CALCIUM 8.8 mg/dL (8.5-10.3); MAGNESIUM 2.1 mg/dL (1.7-2.3); PHOSPHORUS 3.2 mg/dL (2.5-5.0); POTASSIUM 3.8 mmol/L (3.5-4.5); TOTAL PROTEIN 6.2 g/dL (6.4-8.9)
[2023-08-25 08:51] VITALS: BP 138/76
--- NOTE | 2023-08-25 12:40 | Discharge Plan ---
Discharge Plan Problem Reviewed?: Yes Disposition: 06 Home Health Service Condition: Fair Prescriptions: methylPREDNISolone [Medrol] 4 - 16 mg PO 0800 #10 tablet Diet: Low Sodium Activity Restrictions: Activity as Tolerated Shower Restrictions: No Assistance Devices: Walker, Cane Instruction Topics: Tips Cardiovascular Quit Smoking, Disease Chronic Lung Quit Smoking, Withdrawal Smoking Buhler, Smoke Free Stay, Smoke Free Benefits Health Concerns: You were hospitalized to treat a low oxygen level which was caused by a COPD exacerbation. You needed nebulized mist bronchodilators, IV steroids and your supplemental O2. You were also seen by the physical therapist because of your problem with your toe, awaiting for a boot. You would benefit from having physical therapy in your home, therefore a referral was sent to a Home Health agency to provide you with in-home physical therapy and occupational therapy as well as a bath aide if you need it. You are being discharged home today. We checked to see what your oxygen needs are, and they are the same as what you were using before: 2 L/min of oxygen, at rest if needed and definitely on when you are active. I have ordered a prescription for a steroid medication to be tapered down over the next several days. The prescription was electronically sent to your [id number] pharmacy in [place]. You may resume all your other usual pre-hospital medications. You should have a hospital follow-up visit with your primary care provider in the next 1 to 2 weeks. You qualify to attend pulmonary rehab here on the ground floor. Pulmonary rehab helps strengthen your lungs. Your provider would have to order this. Plan of Treatment: As above. Care Goals: Improvement in symptoms and stabilization are the goals. Assessment: Patient understands and is in agreement with the plan. Follow-Up Care: [facility] - Pulmonary No Smoking: If you smoke, Please STOP! Call for help. Follow-up with: GERRY BERG [Primary Care Provider] -
--- NOTE | 2023-08-25 12:57 | DISCHARGE SUMMARY ---
Discharge Summary Admit Date: 08/22/23 Discharge Date: 08/25/23 Discharging Provider: Dr Roxy Vasquez Primary Care Provider: RADHA Salazar Condition at Discharge: Fair Discharge Disposition: [facility] History of Present Illness: This is a 68 y/o male w/ a history of COPD and has been more short of breath than usual for the last 4 days or so. There has had a cough. He denies chest pain. There is some orthopnea. But when queried he says that is because "he just feels like it is a chest cold that is worse when he is laying flat". He went to the clinic today noted to have a room air sat in the 80s, but he does wear oxygen at home. But because of that there was a concern for new onset heart failure which he does not have a history of. That said, he is on a diuretic. Patient has never seen Pulmonary. He has chronic back pain for which he takes methadone. He does have neuropathy and also continues to smoke and has cut down to 2-3 cigs per day. He lives at home alone. His W/U showed BNP is normal, CXR is clear, his respiratory PCR was neg. In the ER, he was only able to walk less than 30 feet before he got very sob, despite being on his home oxygen. Exam showed rhonchi and wheezing. He received nebs in ER and the Hospitalist team was called. - HOSPITAL COURSE Hospital Course: (1) Acute and chronic respiratory failure with hypoxia He is on home O2 but was desaturating even on his usual level of supplemental O2. With improvement of his exacerbation, the setting returned to his usual by discharge. (2) COPD exacerbation He received Duonebs, nebulized steroids, IV steroids, Montelukast, Mucinex and empiric abx, and improved. (3) Leg edema He did have 2+ edema to above ankles. Possibly he has cor pulmonale vs venous insufficiency. He uses Lasix at home and got iv Lasix while here, which helped. (4) Alcohol use Patient requested 1 beer with lunch and 1 beer with dinner, and we honored his request. (5) Dependence on nicotine from cigarettes Patient has mildly elevated CO2 likely chronic. Smoking cessation discussed and patient states he is trying hard to cut down. He got a Nicotine patch while here. (6) Broken toe He has a crushed great toe. He is waiting for a boot. A referral for Home Health PT and OT and Bath Aide was submitted. - ALLERGIES Allergies/Adverse Reactions: Allergies Allergy/AdvReac Type Severity Reaction Status Date / Time No Known Drug Allergies Allergy Verified 08/22/23 18:59 - MEDICATIONS Home Medications: Ambulatory Orders Medication Instructions Recorded Confirmed Albuterol Sulfate [Albuterol 2 puffs INH RTQ4H PRN 03/01/20 08/23/23 Sulfate Hfa] hydroCHLOROthiazide 25 mg PO DAILY 03/01/20 08/23/23 [Hydrochlorothiazide] Methadone HCl 10 mg PO TID 05/31/21 08/23/23 Furosemide [Lasix] 20 mg PO DAILY 03/15/23 08/23/23 Budesonide/Formoterol Fumarate 2 puffs INH BID 08/23/23 08/23/23 [Symbicort 80-4.5 Mcg Inhaler] Lisinopril [Zestril] 40 mg PO DAILY 08/23/23 08/23/23 Montelukast [Singulair] 10 mg PO DAILY 08/23/23 08/23/23 guaiFENesin [Mucinex] 600 mg PO Q6H PRN 08/23/23 08/23/23 methylPREDNISolone [Medrol] 4 - 16 mg PO 0800 #10 tablet 08/25/23 - PHYSICAL EXAM AT DISCHARGE General Appearance: positive: No acute distress, Alert, Other (Disheveled, with long hair and long feng.) Eyes Bilateral: positive: Normal inspection, EOMI ENT: positive: No signs of dehydration, Other (wearing O2 via n.c.) Neck: positive: Nml inspection Respiratory: positive: Wheezes (minimal, scattered wheezes), Other (Poor air mvm in all lung romero) Cardiovascular: positive: Regular rate & rhythm (distant heart sounds due to lung sounds) Abdomen: positive: Non-tender, No distention Skin: positive: Warm, Dry Extremities: positive: Other (1+ predal edema) Neurologic/Psychiatric: positive: Oriented x3, CN's nml (2-12), Motor nml - LABS Result Diagrams: 08/25/23 05:13 08/25/23 05:13 - SEPSIS Current Stage of Sepsis: Ruled out - FOLLOW UP Follow Up: See PCP for a hospital F/U visit. - TIME SPENT Time Spent in Discharge (Minutes): 40
[2023-08-25 16:20] VITALS: O2SAT 90
[2023-08-25 20:51] LABS: ESTIMATED AVERAGE GLUCOSE 131 mg/dL (70-100); HEMOGLOBIN A1c% 6.2 % (4.27-6.07)
== END 2023-08-25 13:57 | disposition home health service (06) | DRG 189 ==
LOC: EDUNIT# → ED 18:30 → MS3 21:18 → OBSVTOIN 08-23 17:12
PROVIDERS: ADMIT Internal Medicine; ATTEND Internal Medicine
DX: J96.21 Acute and chronic respiratory failure with hypoxia (principal); M54.9 Dorsalgia, unspecified; M79.672 Pain in left foot; J44.1 Chronic obstructive pulmonary disease with (acute) exacerbation; F17.210 Nicotine dependence, cigarettes, uncomplicated; Z99.81 Dependence on supplemental oxygen; R60.0 Localized edema; S81.801D Unspecified open wound, right lower leg, subsequent encounter; S92.403 Displaced unspecified fracture of unspecified great toe; X58.XXXD Exposure to other specified factors, subsequent encounter; G62.9 Polyneuropathy, unspecified; M54.50 Low back pain, unspecified; G89.29 Other chronic pain; I10 Essential (primary) hypertension; T14.8XXD Other injury of unspecified body region, subsequent encounter; Z86.14 Personal history of Methicillin resistant Staphylococcus aureus infection; R53.1 Weakness
CPT/HCPCS: 36415; 71045; 80053; 82803; 83036; 83735; 83880; 84100; 85025; 87633; 87640; 93005; 94640; 94761; 96365; 96366; 96375; 96376; 97162; 99285; 99291; A9270; G0378; J7626

== ENCOUNTER 2023-11-26 13:01 | Emergency (ER) | payer MEDICARE, MEDICAID ==
[2023-11-26 13:49] VITALS: BP 153/81; O2SAT 94
--- NOTE | 2023-11-26 14:58 | ED Physician Documentation ---
PD CAPPS HEENT - Stated complaint Stated Complaint: SWOLLEN LT EYE - Chief complaint Chief Complaint: Heent - Additional information Additional information: 68-year-old male with history of hypertension, COPD, peripheral neuropathy originally went to his dentist today for concerns of a dental infection and left eye swelling and pain. Patient says that he has multiple broken teeth that he needs to work on he attempted to go the dentist today as he is having some left upper dental pain but given the swelling and erythema surrounding his left eye they sent him to the emergency department for antibiotics. Patient denies any recent fevers or chills no nausea vomiting diarrhea no other concerning symptoms. Patient denies any vision change. Said that he started to notice slight left periorbital swelling and erythema yesterday but today has gotten significantly worse. PD PAST MEDICAL HISTORY - Past Medical History Past Medical History: Yes Cardiovascular: Hypertension Respiratory: COPD Neuro: Peripheral neuropathy Endocrine/Autoimmune: None GI: None : Nocturia Psych: Anxiety Musculoskeletal: Chronic back pain Derm: Other - Past Surgical History Past Surgical History: Yes - Present Medications Home Medications: Ambulatory Orders Medication Instructions Recorded Confirmed Albuterol Sulfate [Albuterol 2 puffs INH RTQ4H PRN 03/01/20 11/26/23 Sulfate Hfa] hydroCHLOROthiazide 25 mg PO DAILY 03/01/20 11/26/23 [Hydrochlorothiazide] Methadone HCl 10 mg PO TID 05/31/21 11/26/23 Furosemide [Lasix] 20 mg PO DAILY 03/15/23 11/26/23 Budesonide/Formoterol Fumarate 2 puffs INH BID 08/23/23 11/26/23 [Symbicort 80-4.5 Mcg Inhaler] Lisinopril [Zestril] 40 mg PO DAILY 08/23/23 11/26/23 Montelukast [Singulair] 10 mg PO DAILY 08/23/23 11/26/23 Amox/Clav 875/125 [Augmentin 1 tablet PO Q12H 7 Days #13 tablet 11/26/23 875/125 Tab] clindamycin HCL [Cleocin HCl] 300 mg PO TID 7 Days #20 cap 11/26/23 - Allergies Allergies/Adverse Reactions: Allergies Allergy/AdvReac Type Severity Reaction Status Date / Time No Known Drug Allergies Allergy Verified 11/26/23 13:23 - Social History Does the pt smoke?: Yes Smoking Status: Current some day smoker Does the pt drink ETOH?: Yes ETOH Use: Beer Does the pt have substance abuse?: Yes Substance Use and Type: Marijuana - Immunizations Immunizations are current?: Yes - POLST Patient has POLST: No PD ED PE NORMAL - Vitals Vital signs reviewed: Yes - General General: Alert and oriented X 3, No acute distress, Well developed/nourished - HEENT HEENT: Other (left periorbital swelling and erythema) PD ED PE EXPANDED - HEENT HEENT: Atraumatic, PERRL - Eyes Eyes: Visual acuity - see nn, PERRL, Left eye, Eyelid swelling, Normal corneas. No: Eyelid injury, Subconj hemorrhage, Scleral icterus Results - Vitals Vitals: Vital Signs - 24 hr 11/26/23 13:23 Temperature 36.9 C Heart Rate 88 Respiratory 20 Rate Blood Pressure 153/81 H O2 Saturation 94 Oxygen O2 Source [With Activity] Room air O2 Source [Without Activity] Room air O2 Source Room air PD Medical Decision Making - ED course ED course: 68-year-old male presents emergency department for left periorbital swelling and erythema. Patient is also complaining of some dental pain to his left upper molar region. He said no systemic signs or symptoms of infection no fevers or chills no nausea vomiting or generalized malaise. His sclera does not appear to be involved no injection no purulent drainage I do not believe this is related to conjunctivitis. I believe that patient is experiencing preseptal cellulitis. He was started on Augmentin and clindamycin here in the emergency department and a prescription of clindamycin Augmentin was sent to his preferred pharmacy. He is told to follow- up with his primary care provider in a couple days for further evaluation he was given very strict ER return precautions. All questions answered safe for discharge. Departure - Departure Disposition: 01 Home, Self Care Clinical Impression: Periorbital cellulitis of left eye, Dental infection Instructions: ED Infec Skin Cellulitis, ED Cellulitis Facial Prescriptions: Amox/Clav 875/125 [Augmentin 875/125 Tab] 1 tablet PO Q12H 7 Days #13 tablet clindamycin HCL [Cleocin HCl] 300 mg PO TID 7 Days #20 cap Comments: We have started you on antibiotic called clindamycin on Augmentin here in the emergency department. We are treating you for your dental infection as well as concerns for periorbital cellulitis. You have taken your first dose here in the emergency department of clindamycin and Augmentin. For your Augmentin you will need to take this every 12 hours for the next 7 days starting today and very clindamycin you will need to take this every 6 hours for the next 7 days. Please have a very low threshold to come back to the emergency department if your left facial swelling is getting any worse or if you are starting develop any fevers or chills please come back to the emergency department immediately for further hospitalization and evaluation. Forms: PCP List Discharge Date/Time: 11/26/23 15:23
[2023-11-26] MEDS: CLINDAMYCIN 300 MG/2 ML VIAL IM STA (15:11)
[2023-11-26] MEDS: ACETAMINOPHEN 325 MG TABLET PO STA (15:18)
[2023-11-26] MEDS: CLINDAMYCIN 150 MG CAPSULE PO STA (15:18)
[2023-11-26] MEDS: AMOX/CLAV 875 MG/125 MG TABLET PO STA (15:19)
[2023-11-26] MEDS: IBUPROFEN 600 MG TABLET PO STA (15:19)
== END 2023-11-26 15:23 | disposition home or self-care (01) ==
LOC: ED 13:01
DX: L03.213 Periorbital cellulitis (principal); K04.7 Periapical abscess without sinus; I10 Essential (primary) hypertension; J44.9 Chronic obstructive pulmonary disease, unspecified; F17.200 Nicotine dependence, unspecified, uncomplicated; Z79.899 Other long term (current) drug therapy; Z79.51 Long term (current) use of inhaled steroids
CPT/HCPCS: 99283; A9270

== ENCOUNTER 2024-02-07 08:34 | Outpatient (CLI) | payer MEDICARE, MEDICAID | END 2024-02-07 23:59 | disposition EMS.NT | LOC: EMS 08:34 | DX: S81.812A Laceration without foreign body, left lower leg, initial encounter (principal) ==

== ENCOUNTER 2024-03-28 14:38 | Outpatient (CLI) | payer MEDICARE, MEDICAID ==
--- NOTE | 2024-03-29 06:49 | Ultrasound Report ---
PROCEDURE: Arterial Duplex Lwr Ext BL INDICATIONS: PAD TECHNIQUE: Color and pulse Doppler interrogation was performed of both lower extremity arterial systems, with im age documentation. COMPARISON: Right lower extremity CT angiogram 05/31/2021 FINDINGS: Right lower extremity: Common femoral artery: 128 cm/sec, with triphasic flow. Deep femoral artery: 55 cm/sec, with monophasic flow. Proximal superficial femoral artery: 87 cm/sec, with triphasic flow. Mid superficial femoral artery: 120 cm/sec, with triphasic flow. Distal superficial femoral artery: 73 cm/sec, with triphasic flow. Popliteal artery: 53 cm/sec, with biphasic flow. Posterior tibial artery: 86 cm/sec, with triphasic flow. Anterior tibial artery: Velocity and waveform not identified; possibly occluded dorsalis pedis: 92 cm/sec, with biphasic flow. Epps-scale imaging description: Mild-moderate atherosclerotic plaque. Left lower extremity: Common femoral artery: 130 cm/sec, with triphasic flow. Deep femoral artery: 53 cm/sec, with monophasic flow. Proximal superficial femoral artery: 113 cm/sec, with triphasic flow. Mid superficial femoral artery: 137 cm/sec, with triphasic flow. Distal superficial femoral artery: 11 cm/sec, with monophasic flow. Popliteal artery: 77 cm/sec, with triphasic flow. Posterior tibial artery: 72 cm/sec, with biphasic flow. Anterior tibial artery/dorsalis pedis: 56-58 cm/sec, with monophasic waveform in the anterior tibial and biphasic in the dorsalis pedis. Epps-scale imaging description: Mild-moderate atherosclerotic plaque. ANKLE-BRACHIAL INDEX MEASUREMENTS: RIGHT: Brachial pressure: 158/78 mm Hg Ankle pressure: 143/59 mm Hg APARNA: 0.9 LEFT: Brachial pressure: 140/76 mm Hg Ankle pressure: 141/77 mm Hg APARNA: 0.8 IMPRESSION: 1.Possible occlusion of the right lower extremity anterior tibial artery. 2.Likely severe hemodynamically significant stenosis at the left mid superficial femoral artery with severely reduced flow at the distal superficial femoral artery. Distal flow preserved, likely seconda ry to collaterals. If there are signs of limb ischemia, a repeat CTA lower extremity runoff would be recommended for confirmation. 3.Mild bilateral peripheral arterial disease. Reviewed by: Leonardo Lemus MD on 03/29/2024 6:47 AM PDT Approved by: Leonardo Lemus MD on 03/29/2024 6:47 AM PDT Station ID: [id number]
--- NOTE | 2024-03-29 06:50 | Ultrasound Report ---
PROCEDURE: Ankle Brachial Index INDICATIONS: PAD TECHNIQUE: Ankle-brachial indices were obtained bilaterally and recorded. COMPARISONS: None. FINDINGS: RIGHT: Brachial pressure: 158/78 mm Hg Ankle pressure: 143/59 mm Hg APARNA: 0.9 LEFT: Brachial pressure: 140/76 mm Hg Ankle pressure: 141/77 mm Hg APARNA: 0.8 Healing potential: Ankle pressures >55 mm Hg in non-diabetics and >80 mm Hg in diabetics are likely to achieve primary h ealing of ischemic foot ulcers. Toe pressures >30 mm Hg are likely to achieve primary healing of ischemic foot ulcers, toe or transme tatarsal amputations. IMPRESSION: Mild bilateral peripheral arterial disease. Reviewed by: Leonardo Lemus MD on 03/29/2024 6:48 AM PDT Approved by: Leonardo Lemus MD on 03/29/2024 6:48 AM PDT Station ID: [id number]
== END 2024-03-28 14:39 | disposition home or self-care (01) ==
LOC: DI 14:38
PROVIDERS: ATTEND Registered Nurse
DX: I73.9 Peripheral vascular disease, unspecified (principal)
CPT/HCPCS: 93922; 93925